=== PATIENT | female | born 1930 | race Caucasian/White ===

== ENCOUNTER 2016-12-28 10:57 | Emergency (ER) | payer MEDICARE, BC ==
[2016-12-28] MEDS ORDERED: IPRATROPIUM/ALBUTEROL 0.5-2.5 MG/3 ML AMPUL NEB ONE (11:06)
--- NOTE | 2016-12-28 12:09 | ER Document Report ---
ED General - General Chief Complaint: Skin Problem Stated Complaint: POSSIBLE RASH Time Seen by Provider: 12/28/16 11:06 Notes: Patient is an 86-year-old female, past medical history A. fib, CHF, prior CVAs, COPD, bed bound, presents with 3 months of a rash on her lower abdomen, legs and back. According to the son, she has had this rash for the past 3 months and was started on antifungal by her primary care physician. The rash is still spreading. He is also concerned that the patient has pneumonia and urinary tract infection. TRAVEL OUTSIDE OF THE [place] 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 RESPIRATORY: -cough, -SOB, +wheezing GASTROINTESTINAL: -abdominal pain, -nausea, -vomiting, -diarrhea GENITOURINARY: +malodorous urine, -dysuria, -hematuria MUSCULOSKELETAL: -back pain, -neck pain SKIN: +rash HEMATOLOGIC: -easy bruising or bleeding. LYMPHATIC: -swollen, enlarged glands. NEUROLOGICAL: -altered mental status or loss of consciousness, -headache, - neurologic symptoms PSYCHIATRIC: -anxiety, -depression. ALL OTHER SYSTEMS REVIEWED AND NEGATIVE. Physical Exam - Vital signs Vitals: Temp Pulse Resp BP Pulse Ox 98.0 F 60 20 150/58 H 100 12/28/16 11:02 12/28/16 11:02 12/28/16 11:02 12/28/16 11:02 12/28/16 11:02 - Notes Notes: PHYSICAL EXAMINATION: GENERAL: Well-appearing, well-nourished and in no acute distress. HEAD: Atraumatic, normocephalic. EYES: Pupils equal round and reactive to light, extraocular movements intact, sclera anicteric, conjunctiva are normal. ENT: nares patent, oropharynx clear without exudates. Moist mucous membranes. NECK: Normal range of motion, supple without lymphadenopathy LUNGS: No respiratory distress. Wheezing present. HEART: Regular rate and rhythm without murmurs ABDOMEN: Soft, nontender, normoactive bowel sounds. No guarding, no rebound. No masses appreciated. EXTREMITIES: Normal range of motion, no pitting or edema. No cyanosis. NEUROLOGICAL: Cranial nerves grossly intact. Normal speech, normal gait. Normal sensory and motor exams. PSYCH: Normal mood, normal affect. SKIN: Erythematous macular rash over lower abdomen, inner legs and back Course - Re-evaluation Re-evalutation: Patient appears well. She has evidence of a UTI. Looking through old urine cultures, will provide a dose of Zosyn and send her home with Macrobid and Keflex. This may also help with her rash in case there is a cellulitis component to it. Instructed her to follow-up with her primary care physician for further evaluation and treatment. Given strict return precautions and they understand. - Vital Signs Vital signs: Temp Pulse Resp BP Pulse Ox 98.0 F 60 20 150/58 H 100 12/28/16 11:02 12/28/16 11:02 12/28/16 11:02 12/28/16 11:02 12/28/16 11:02 - Laboratory Laboratory results interpreted by me: 12/28/16 12:55 Urine Blood SMALL H Ur Leukocyte Esterase LARGE H Discharge - Discharge Clinical Impression: Dermatitis UTI (urinary tract infection) Qualifiers: Urinary tract infection type: acute cystitis Hematuria presence: without hematuria Qualified Code(s): N30.00 - Acute cystitis without hematuria Condition: Stable Disposition: HOME, SELF-CARE Additional Instructions: URINARY TRACT INFECTION: Your evaluation indicates that you have a urinary tract infection. This is due to germs growing in the bladder. This is a common problem. This infection usually responds quickly to antibiotics. Your antibiotic should be taken exactly as prescribed. Drink plenty of fluids -- three to four quarts a day. Occasionally, a bladder anesthetic will be prescribed to help stop the feeling of urgency until the antibiotic has a chance to clear the infection. This may cause your urine to be dark orange. Certain urine infections require a culture. If the doctor obtained a culture, the results will be back in two days. You should call to see if a change in treatment is needed. A repeat urinalysis after you finish treatment is often recommended. The physician will let you know if further testing is required. Call the doctor if you develop fever, chills, flank pain, inability to urinate, or blood in the urine. ANTIBIOTIC THERAPY: You have been given an antibiotic prescription. It's important that you take all the medication, unless instructed otherwise by your physician. Failure to complete the entire course can result in relapse of your condition. Common side effects of antibiotics include nausea, intestinal cramping, or diarrhea. Women may develop vaginal yeast infections, and babies can get yeast (thrush) in the mouth following the use of antibiotics. Contact your physician if you develop significant side effects from this medication. Allergy to this antibiotic can result in hives, wheezing, faintness, or itching. If symptoms of allergy occur, stop the medication and call the doctor. NITROFURANTOIN (MACRODANTIN, MACROBID): You have received a prescription for nitrofurantoin (Macrodantin). This antibiotic is used for urinary tract infections. Women who are or nursing should notify the physician before taking this medicine. If you have ever had a problem caused by this medication in the past, be sure the physician is aware of it. Common side effects of this medicine include nausea, vomiting, or decreased appetite. Notify your physician if these side effects become severe. Immediately stop this medicine and call the physician if you develop cough , shortness of breath, chest pain, weakness, jaundice (yellow color of the skin and whites of the eyes), or a skin rash. CEPHALEXIN: The antibiotic you've been prescribed is a member of the cephalosporin class. This type of antibiotic covers a wide variety of infections, including those of the skin, lungs, and urinary tract. It's useful for staph infections. This antibiotic is slightly similar to the penicillin family. In rare cases , a person who is allergic to penicillin will also be allergic to this medication. If you have had a severe allergic reaction to penicillin, and have not taken this antibiotic since that time, notify your doctor. Antibiotics which cover many germs ("broad spectrum" antibiotics) are more likely to cause diarrhea or "yeast" infections. Women prone to vaginal yeast problems may suffer an attack after taking this antibiotic. In infants, oral thrush (white spots "stuck" on the cheek) or yeast diaper rash may result. See your doctor if these problems occur. Call at once if you develop itching, hives , shortness of breath, or lightheadedness. FOLLOW-UP CARE: If you have been referred to a physician for follow-up care, call the physician s office for an appointment as you were instructed or within the next two days. If you experience worsening or a significant change in your symptoms, notify the physician immediately or return to the Emergency Department at any time for re-evaluation. [facility] Dr. Ra Schreiber [address] [place] [address] Prescriptions: Cephalexin Monohydrate [Keflex 500 mg Capsule] 500 mg PO TID #21 capsule Nitrofurantoin/Nitrofuran Mac [Macrobid 100 mg Capsule] 1 tab PO BID #10 capsule
[2016-12-28] MEDS ORDERED: PREDNISONE 20 MG TABLET PO ONE (12:36)
--- NOTE | 2016-12-28 13:07 | RADIOLOGY REPORT (SQ) ---
EXAM DESCRIPTION: CHEST SINGLE VIEW COMPLETED DATE/TIME: 12/28/2016 12:17 pm REASON FOR STUDY: SOB COMPARISON: March 2016 EXAM PARAMETERS: NUMBER OF VIEWS: One view. TECHNIQUE: Single frontal radiographic view of the chest acquired. RADIATION DOSE: NA LIMITATIONS: Patient has made a shallow inspiration. FINDINGS: LUNGS AND PLEURA: No opacities, masses or pneumothorax. No pleural effusion. Linear densi ty is identified in right lower lung field which could represent subsegmental atelectasis or scarring . MEDIASTINUM AND HILAR STRUCTURES: There is some prominence of the right hilum unchanged from the prev ious study. HEART AND VASCULAR STRUCTURES: Heart normal in size. Normal vasculature. BONES: No acute findings. HARDWARE: None in the chest. OTHER: No other significant finding. IMPRESSION: NO ACUTE RADIOGRAPHIC FINDING IN THE CHEST. TECHNICAL DOCUMENTATION: JOB ID: [id number]
[2016-12-28 13:46] LABS: AMORPHOUS SEDIMENT,URINE TRACE /HPF; APPEARANCE,URINE CLOUDY; BILIRUBIN,URINE NEGATIVE (NEGATIVE); GLUCOSE, URINE NEGATIVE (NEGATIVE); KETONES,URINE NEGATIVE (NEGATIVE); LEUKOCYTE ESTERASE,URINE LARGE (NEGATIVE); NITRITE,URINE NEGATIVE (NEGATIVE); PROTEIN,URINE NEGATIVE (NEGATIVE); URINE SPECIFIC GRAVITY 1.006; UROBILINOGEN,URINE NEGATIVE mg/dL (<2.0)
[2016-12-28] MEDS ORDERED: PIPERACILLIN/TAZOBACTAM 3.375 GM VIAL IV ONE (13:51)
[2016-12-28 17:51] VITALS: BP 140/91
== END 2016-12-28 17:51 | disposition home or self-care (01) ==
LOC: ER 10:57
DX: L30.9 Dermatitis, unspecified (principal); N30.00 Acute cystitis without hematuria; I48.91 Unspecified atrial fibrillation; I50.9 Heart failure, unspecified; I11.0 Hypertensive heart disease with heart failure; I12.0 Hypertensive chronic kidney disease with stage 5 chronic kidney disease or end stage renal disease; N18.6 End stage renal disease; J44.9 Chronic obstructive pulmonary disease, unspecified; E03.9 Hypothyroidism, unspecified; Z86.73 Personal history of transient ischemic attack (TIA), and cerebral infarction without residual deficits; Z74.01 Bed confinement status; Z96.653 Presence of artificial knee joint, bilateral
CPT/HCPCS: 94640; 99284; 51701; 96365; 87086; 87088; 81001; 87186; 71010; A9270 ×2; J2543; J7512; J7620

== ENCOUNTER 2017-10-04 08:19 | Inpatient (IN) | payer MEDICARE, BC ==
[2017-10-04] MEDS ORDERED: NORMAL SALINE 1000 ML 1,000 ML IV PRN (08:23)
[2017-10-04] MEDS ORDERED: CEFTRIAXONE 1 GM/D5W RTU 50 ML IV ONE (08:23)
[2017-10-04] MEDS ORDERED: CEFTRIAXONE INJ 1000 MG VIAL IV ONE (09:00)
[2017-10-04 09:12] LABS: HEMATOCRIT 34.6 % (36.0-47.0); HEMOGLOBIN 11.3 g/dL (12.0-15.5); MEAN CORPUSCULAR HEMOGLOBIN 34.4 pg (27.0-33.4); MEAN CORPUSCULAR HGB CONC 32.6 g/dL (32.0-36.0); MEAN CORPUSCULAR VOLUME 106 fl (80-97); PLATELET COUNT 345 10^3/uL (150-450); RED BLOOD COUNT 3.28 10^6/uL (3.72-5.28); RED CELL DISTRIBUTION WIDTH 16.7 % (11.5-14.0); WHITE BLOOD COUNT 16.7 10^3/uL (4.0-10.5)
[2017-10-04 09:19] LABS: PROTHROMBIN TIME 15.8 SEC (11.4-15.4)
[2017-10-04 09:21] LABS: VENOUS BLOOD BASE EXCESS -3.5 mmol/L; VENOUS BLOOD HCO3 26.2 mmol/L (20-32)
[2017-10-04 09:26] LABS: ALANINE AMINOTRANSFERASE 48 U/L (9-52); ALBUMIN 2.5 g/dL (3.5-5.0); ALKALINE PHOSPHATASE 206 U/L (38-126); ANION GAP 17 (5-19); ASPARTATE AMINO TRANSFERASE 41 U/L (14-36); BILIRUBIN,DIRECT 0.7 mg/dL (0.0-0.4); BILIRUBIN,TOTAL 0.8 mg/dL (0.2-1.3); BLOOD UREA NITROGEN 76 mg/dL (7-20); CALCIUM 8.4 mg/dL (8.4-10.2); CARBON DIOXIDE 25 mmol/L (22-30); CHLORIDE 103 mmol/L (98-107); GLUCOSE 137 mg/dL (75-110); SODIUM 144.5 mmol/L (137-145); TOTAL PROTEIN 4.9 g/dL (6.3-8.2)
[2017-10-04 09:28] LABS: VENOUS BLOOD PCO2 72.8 mmHg (35-63); VENOUS BLOOD PH 7.17 (7.30-7.42)
[2017-10-04] MEDS ORDERED: NORMAL SALINE 1000 ML 1,000 ML IV ONE (09:32)
[2017-10-04] MEDS ORDERED: AMPICILLIN SOD/SULBACTAM 3 GM VIAL IV ONE (09:34)
[2017-10-04 09:36] LABS: ABSOLUTE LYMPHOCYTES# (MANUAL) 0.7 10^3/uL (0.5-4.7); BAND NEUTROPHILS % (MANUAL) 20 % (3-5); BASOPHILS % (MANUAL) 0 % (0-2); EOSINOPHILS % (MANUAL) 0 % (0-6); LYMPHOCYTES % (MANUAL) 4 % (13-45); MONOCYTES % (MANUAL) 6 % (3-13); SEGMENTED NEUTROPHILS % (MAN) 70 % (42-78); TOTAL CELLS COUNTED 100
[2017-10-04 09:38] LABS: ANISOCYTOSIS 1+; PLATELET COMMENT ADEQUATE; TOXIC GRANULATION 2+; TOXIC VACUOLATION PRESENT
[2017-10-04 09:39] LABS: POLYCHROMASIA SLIGHT
--- NOTE | 2017-10-04 09:40 | ER Document Report ---
ED General - General Stated Complaint: RESPIRATORY DISTRESS Time Seen by Provider: 10/04/17 08:22 Mode of Arrival: Medic Information source: Relative, Emergency Med Personnel Cannot obtain history due to: Intubated Notes: 87 yr old female chf copd presents by ems emergency traffice for resp failure. pt noted ot be fine yesterday per son, aspirated on fluids. pt found minimally responsive in significant resp distress. pt is a dnr but family requested intubation, pt intubated in the field by ems TRAVEL OUTSIDE OF THE [place] IN LAST 30 DAYS: No - HPI Onset: Just prior to arrival Onset/Duration: Sudden Quality of pain: No pain Severity: Severe Pain Level: Denies Associated symptoms: Productive cough, Fever, Shortness of breath Exacerbated by: Denies Relieved by: Denies Similar symptoms previously: Yes Recently seen / treated by doctor: Yes - Related Data Allergies/Adverse Reactions: No Known Allergies Allergy (Verified 09/06/15 19:57) Past Medical History - Social History Smoking Status: Former Smoker Cigarette use (# per day): No Chew tobacco use (# tins/day): No Smoking Education Provided: No Family History: Reviewed & Not Pertinent, Other - CHF - Past Medical History Cardiac Medical History: Reports: Hx Atrial Fibrillation, Hx Congestive Heart Failure, Hx Hypercholesterolemia, Hx Hypertension Pulmonary Medical History: Reports: Hx COPD Endocrine Medical History: Reports: Hx Hypothyroidism Renal/ Medical History: Reports: Hx End Stage Renal Disease - stage 5 Psychiatric Medical History: Reports: Hx Depression Past Surgical History: Reports: Hx Orthopedic Surgery - bilateral knee replacement - Immunizations Hx Pneumococcal Vaccination: 06/26/12 Review of Systems - Review of Systems Notes: REVIEW OF SYSTEMS: Per EMS CONSTITUTIONAL : fever. EENT: Denies eye, ear, throat, or mouth pain or symptoms. Denies nasal or sinus congestion or discharge. Denies throat, tongue, or mouth swelling or difficulty swallowing. CARDIOVASCULAR: Denies chest pain. Denies palpitations or racing or irregular heart beat. Denies ankle edema. RESPIRATORY: aspiration last night , resp distress GASTROINTESTINAL: Denies abdominal pain or distention. Denies nausea, vomiting , or diarrhea. Denies blood in vomitus, stools, or per rectum. Denies black, tarry stools. Denies constipation. GENITOURINARY: Denies difficulty urinating, painful urination, burning, frequency, blood in urine, or discharge. FEMALE GENITOURINARY: Denies vaginal bleeding, heavy or abnormal periods, irregular periods. Denies vaginal discharge or odor. MUSCULOSKELETAL: Denies back or neck pain or stiffness. Denies joint pain or swelling. SKIN: Denies rash, lesions or sores. HEMATOLOGIC : Denies easy bruising or bleeding. LYMPHATIC: Denies swollen, enlarged glands. NEUROLOGICAL: Denies confusion or altered mental status. Denies passing out or loss of consciousness. Denies dizziness or lightheadedness. Denies headache. Denies weakness or paralysis or loss of use of either side. Denies problems with gait or speech. Denies sensory loss, numbness, or tingling. Denies seizures. PSYCHIATRIC: Denies anxiety or stress. Denies depression, suicidal ideation, or homicidal ideation. ALL OTHER SYSTEMS REVIEWED AND NEGATIVE. PHYSICAL EXAMINATION: GENERAL: ill appearing, hypotensive, intubated HEAD: Atraumatic, normocephalic. EYES: Pupils equal round and reactive to light, extraocular movements intact, conjunctiva are normal. ENT: Nares patent, oropharynx clear without exudates. Moist mucous membranes. NECK: Normal range of motion, supple without lymphadenopathy LUNGS: intubated, coarse breath sounds HEART: weak pulses ABDOMEN: Soft, nontender, nondistended abdomen. No guarding, no rebound. No masses appreciated. Female : deferred Musculoskeletal: Normal range of motion, no pitting or edema. No cyanosis. NEUROLOGICAL: intubated gcs 3 SKIN: hot Dictation was performed using [employer] voice recognition software Course - Re-evaluation Re-evalutation: 10/04/17 09:40 Patient has obvious aspiration pneumonia causing respiratory failure, patient's tube was noted to be in place however there is issues with the circuitry and low lung volumes were initially noted, Dr. Edmondson assisted with ventilator settings, patient will be admitted to primary care physician Dr. Lebron, patient is treated as sepsis, after fluids were given patient's blood pressure did improve elevated lactic acid is noted Reevaluation has been performed on the patient. Patient vital signs are noted to be satting 99% intubated, heart rate 98 blood pressure 83/46 good cap refill respiratory rate 18 Cardiopulmonary exam noted lungs coarse Capillary refill is brisk Peripheral pulses are intact all throughout and bounding Skin Examination notes no tenting - Laboratory Result Diagrams: 10/04/17 08:58 10/04/17 08:58 Laboratory results interpreted by me: 10/04/17 10/04/17 10/04/17 08:58 08:58 08:58 WBC 16.7 H RBC 3.28 L Hgb 11.3 L Hct 34.6 L MCV 106 H MCH 34.4 H RDW 16.7 H PT 15.8 H VBG pH VBG pCO2 BUN 76 H Creatinine 2.26 H Est GFR ( Amer) 25 L Est GFR (Non-Af Amer) 20 L Glucose 137 H Lactic Acid Direct Bilirubin 0.7 H AST 41 H Alkaline Phosphatase 206 H Total Protein 4.9 L Albumin 2.5 L 10/04/17 10/04/17 08:58 09:06 WBC RBC Hgb Hct MCV MCH RDW PT VBG pH 7.17 L* VBG pCO2 72.8 H* BUN Creatinine Est GFR ( Amer) Est GFR (Non-Af Amer) Glucose Lactic Acid 2.6 H Direct Bilirubin AST Alkaline Phosphatase Total Protein Albumin - Diagnostic Test Radiology reviewed: Image reviewed - Pneumonia right lower lobe, Reports reviewed - EKG Interpretation by Me EKG shows normal: Sinus rhythm, [place], Intervals, QRS Complexes Rate: Tachycardia Critical Care Note - Critical Care Note Total time excluding time spent on procedures (mins): 68 Comments: 68 minutes of critical care time spent in direct contact evaluating and reevaluating the patient, treating symptoms, reviewing labs and studies and speaking with family and consultants excluding any procedures Discharge - Discharge Clinical Impression: Encephalopathy, Septic shock, Respiratory failure requiring intubation Aspiration pneumonia Qualifiers: Aspiration pneumonia type: unspecified Laterality: right Lung location: lower lobe of lung Qualified Code(s): J69.0 - Pneumonitis due to inhalation of food and vomit Condition: Critical Disposition: ADMITTED INPATIENT Admitting Provider: Fat[facility] Unit Admitted: ICU Referrals: KESHAWN LEBRON MD [Primary Care Provider] - Follow up as needed
[2017-10-04] MEDS ORDERED: LEVALBUTEROL HCL NEB 0.63 MG/3 ML AMPUL NEB PRN (09:43)
--- NOTE | 2017-10-04 09:46 | RADIOLOGY REPORT (SQ) ---
EXAM DESCRIPTION: CHEST SINGLE VIEW COMPLETED DATE/TIME: 10/04/2017 8:46 am REASON FOR STUDY: post intubation COMPARISON: AP chest 12/28/2016 for, 04/06/2016 CT chest 04/04/2016 CT EXAM PARAMETERS: NUMBER OF VIEWS: One view. TECHNIQUE: Single frontal radiographic view of the chest acquired. RADIATION DOSE: NA LIMITATIONS: Portable film, large patient FINDINGS: LUNGS AND PLEURA: Endotracheal tube tip 4 to 5 cm above the panda. Bibasilar airspace disease is present atelectasis versus pneumonia. No pleural effusions. No pneumo thorax. MEDIASTINUM AND HILAR STRUCTURES: No masses. Contour normal. HEART AND VASCULAR STRUCTURES: Stable cardiomegaly BONES: No acute findings. HARDWARE: Endotracheal tube tip midtrachea OTHER: No other significant finding. IMPRESSION: Endotracheal tube in good positioning. Bibasilar airspace disease atelectasis versus pneumonia TECHNICAL DOCUMENTATION: JOB ID: [id number] [employer]- All Rights Reserved Reading location - IP/workstation name: [email or web address]
[2017-10-04 10:15] LABS: APPEARANCE,URINE SLIGHTLY-CLOUDY; BILIRUBIN,URINE NEGATIVE (NEGATIVE); COLOR,URINE YELLOW; GLUCOSE, URINE NEGATIVE (NEGATIVE); KETONES,URINE NEGATIVE (NEGATIVE); LEUKOCYTE ESTERASE,URINE LARGE (NEGATIVE); NITRITE,URINE NEGATIVE (NEGATIVE); PROTEIN,URINE NEGATIVE (NEGATIVE); URINE SPECIFIC GRAVITY 1.012
[2017-10-04] MEDS ORDERED: NOREPINEPHRINE BITARTRATE INJ/PF 4 MG/4 ML SDV IV ONE (10:35)
[2017-10-04] MEDS ORDERED: DEXTROSE 40% GEL 15 GM TUBE PO PRN ×2 (11:28)
[2017-10-04] MEDS ORDERED: GLUCAGON,HUMAN RECOMB 1 MG INJ SUBCUT PRN (11:28)
[2017-10-04] MEDS ORDERED: DEXTROSE 50%-WATER 25 GM/50 ML DISP.SYRIN IV PRN ×2 (11:28)
[2017-10-04 11:35] LABS: ARTERIAL BLOOD BASE EXCESS -3.2 mmol/L; ARTERIAL BLOOD H2CO3 0.96 mmol/L (1.05-1.35); ARTERIAL BLOOD HCO3 20.4 mmol/L (20-26); ARTERIAL BLOOD O2 SATURATION 96.9 % (94-98); ARTERIAL BLOOD PCO2 31.8 mmHg (35-45); ARTERIAL BLOOD PH 7.43 (7.35-7.45); ARTERIAL BLOOD PO2 87.1 mmHg (80-100); ARTERIAL BLOOD TOTAL CO2 21.4 mmol/L (21-25)
[2017-10-04 11:37] LABS: ARTERIAL BLOOD FIO2 60%
[2017-10-04] MEDS ORDERED: ENOXAPARIN SODIUM INJ 30 MG/0.3 ML DISP.SYRIN SUBCUT ONE (13:00)
--- NOTE | 2017-10-04 13:01 | RADIOLOGY REPORT (SQ) ---
EXAM DESCRIPTION: CHEST SINGLE VIEW COMPLETED DATE/TIME: 10/04/2017 12:32 pm REASON FOR STUDY: post central line placement COMPARISON: CT chest 04/04/2016 Chest films 04/06/2016, 12/28/2016, 10/04/2017 EXAM PARAMETERS: NUMBER OF VIEWS: One view. TECHNIQUE: Single frontal radiographic view of the chest acquired. RADIATION DOSE: NA LIMITATIONS: None. FINDINGS: LUNGS AND PLEURA: Upper lobes are hyperlucent from obstructive disease. Minimal bibasilar consolidation likely atelectasis. Pneumonia could not entirely be excluded. No pneumothorax. Ques tion trace left pleural effusion. MEDIASTINUM AND HILAR STRUCTURES: No masses. Contour normal. HEART AND VASCULAR STRUCTURES: Moderate stable cardiomegaly BONES: Osteoporotic HARDWARE: Endotracheal tube tip 5 cm above the panda. Right jugular central line tip superior vena cava. Nasogastric tube tip and side port in the stomach. OTHER: No other significant finding. IMPRESSION: Tubes and lines in good positioning. No pneumothorax post right jugular central line placement. Line tip superior vena cava. Minimal bibasilar airspace disease likely atelectasis. Question trace left pleural effusion TECHNICAL DOCUMENTATION: JOB ID: [id number] [employer]- All Rights Reserved Reading location - IP/workstation name: [email or web address]
[2017-10-04] MEDS: IPRATROPIUM/ALBUTEROL 0.5-2.5 MG/3 ML AMPUL NEB SCH ×2 (13:41→20:13)
--- NOTE | 2017-10-04 14:02 | EKG REPORT ---
SEVERITY:- ABNORMAL ECG - SINUS TACHYCARDIA INFERIOR INFARCT, AGE INDETERMINATE CONSIDER ANTERIOR INFARCT : Confirmed by: Reji Solorzano MD 04-Oct-2017 14:00:42
--- NOTE | 2017-10-04 14:10 | PDOC H&P ---
History of Present Illness Admission Date/PCP: 10/04/17 09:52 KESHAWN LEBRON MD Patient complains of: field intubation History of Present Illness: JV PUGH is a 87 year old female bedbound on home health last seen in january. She choked while eating last night and seemed to recover. Son found her in respiratory distress this am and had her intubated in spite of DNR. Past Medical History Cardiac Medical History: Reports: Atrial Fibrillation, Congestive Heart Failure - diastolic since 2007, Hyperlipidema, Hypertension Pulmonary Medical History: Reports: Chronic Obstructive Pulmonary Disease (COPD) , Pneumonia - 2010 aspiration EENT Medical History: Reports: None Neurological Medical History: Reports: Ischemic CVA Endocrine Medical History: Reports: Hypothyroidism Renal/ Medical History: Reports: Chronic Kidney Disease, Other - neurogenic bladder Malignancy Medical History: Reports: None GI Medical History: Reports: None Musculoskeltal Medical History: Reports: Arthritis, Gout Psychiatric Medical History: Reports: Depression Traumatic Medical History: Reports: None Hematology: Reports: Anemia Infectious Medical History: Reports: None Past Surgical History Past Surgical History: Reports: Orthopedic Surgery - bilateral knee replacement Social History Information Source: Dr. Juan Lives with: Family Smoking Status: Former Smoker Number of Years Smokin Last Time Smoked: 2007 Frequency of Alcohol Use: None Hx Recreational Drug Use: No Hx Prescription Drug Abuse: No - Advance Directive Resuscitation Status: Do Not Resuscitate Family History Family History: Reviewed & Not Pertinent, Other - CHF Parental Family History Reviewed: Yes Children Family History Reviewed: Yes Sibling(s) Family History Reviewed.: Yes Medication/Allergy Home Medications: Allopurinol [Zyloprim] 300 mg PO DAILY 10/04/17 Aspirin [Aspirin 81 mg Chewable Tablet] 81 mg PO DAILY 10/04/17 Budesonide/Formoterol Fumarate [Symbicort Hfa 160-4.5 Mcg Inhaler 6 gm] 2 puff IH Q12 10/04/17 Bumetanide [Bumex 1 mg Tablet] 3 mg PO BID 10/04/17 Buspirone HCl [Buspar 15 mg Tablet] 7.5 mg PO TID 10/04/17 Gabapentin [Neurontin 400 mg Capsule] 400 mg PO Q8 10/04/17 Levothyroxine Sodium [Synthroid] 88 mcg PO Q6AM 10/04/17 Montelukast Sodium [Singulair 10 mg Tablet] 10 mg PO DAILY 10/04/17 Multivitamin [Tab-A-Lucretia] 1 each PO DAILY 10/04/17 Omeprazole 40 mg PO DAILY 10/04/17 Sennosides [Senna] 17.2 mg PO DAILY 10/04/17 Spironolactone [Aldactone] 50 mg PO DAILY 10/04/17 Tiotropium [place] [Spiriva Handihaler 18 mcg/dose (30 Dose)] 1 cap IH DAILY 05/13 Allergies/Adverse Reactions: No Known Allergies Allergy (Verified 09/06/15 19:57) Review of Systems ROS unobtainable: Due to endotracheal tube Physical Exam Vital Signs: Temp Pulse Resp BP Pulse Ox 97.9 F 84 16 140/96 H 100 10/04/17 13:19 10/04/17 13:35 10/04/17 13:19 10/04/17 13:19 10/04/17 13:19 Intake & Output 10/03/17 10/04/17 10/05/17 07:59 07:59 07:59 Output Total 360 Balance -360 Weight 190 lb 14.725 oz Eye exam: PRESENT: EOMI, PERRLA. ABSENT: conjunctival injection, nystagmus, periorbital swelling, scleral icterus Neck exam: ABSENT: lymphadenopathy, tenderness, thyromegaly, tracheal deviation Respiratory exam: PRESENT: rales Cardiovascular exam: ABSENT: diastolic murmur, irregular rhythm, systolic murmur GI/Abdominal exam: ABSENT: mass, organolmegaly Extremities exam: ABSENT: pedal edema Neurological exam: PRESENT: other - opens eyes to pain Skin exam: PRESENT: skin tears - L 4 finger lac. ABSENT: normal color - hyperpigmentation legs as in necrobiosis Results Laboratory Results: Abnormal - 24 hr 10/04/17 10/04/17 10/04/17 08:41 08:58 08:58 WBC 16.7 H RBC 3.28 L Hgb 11.3 L Hct 34.6 L MCV 106 H MCH 34.4 H RDW 16.7 H Band Neutrophils % 20 H Lymphocytes % (Manual) 4 L Abs Neuts (Manual) 15.0 H PT 15.8 H Carbonic Acid ABG pCO2 VBG pH VBG pCO2 BUN Creatinine Est GFR ( Amer) Est GFR (Non-Af Amer) Glucose POC Glucose Lactic Acid Direct Bilirubin AST Alkaline Phosphatase Total Protein Albumin Urine Urobilinogen 2.0 H Ur Leukocyte Esterase LARGE H 10/04/17 10/04/17 10/04/17 08:58 08:58 09:06 WBC RBC Hgb Hct MCV MCH RDW Band Neutrophils % Lymphocytes % (Manual) Abs Neuts (Manual) PT Carbonic Acid ABG pCO2 VBG pH 7.17 L* VBG pCO2 72.8 H* BUN 76 H Creatinine 2.26 H Est GFR ( Amer) 25 L Est GFR (Non-Af Amer) 20 L Glucose 137 H POC Glucose Lactic Acid 2.6 H Direct Bilirubin 0.7 H AST 41 H Alkaline Phosphatase 206 H Total Protein 4.9 L Albumin 2.5 L Urine Urobilinogen Ur Leukocyte Esterase 10/04/17 10/04/17 10/04/17 09:07 11:10 13:24 WBC RBC Hgb Hct MCV MCH RDW Band Neutrophils % Lymphocytes % (Manual) Abs Neuts (Manual) PT Carbonic Acid 0.96 L ABG pCO2 31.8 L VBG pH VBG pCO2 BUN Creatinine Est GFR ( Amer) Est GFR (Non-Af Amer) Glucose POC Glucose 154 H Lactic Acid 3.8 H Direct Bilirubin AST Alkaline Phosphatase Total Protein Albumin Urine Urobilinogen Ur Leukocyte Esterase Impressions: Chest X-Ray 10/04/17 11:12 IMPRESSION: Tubes and lines in good positioning. No pneumothorax post right jugular central line placement. Line tip superior vena cava. Minimal bibasilar airspace disease likely atelectasis. Question trace left pleural effusion Assessment & Plan - Diagnosis (1) Sepsis associated hypotension Is this a current diagnosis for this admission?: Yes Plan: on levophed (2) Aspiration pneumonia Qualifiers: Aspiration pneumonia type: due to regurgitated food Laterality: bilateral Lung location: lower lobe of lung Qualified Code(s): J69.0 - Pneumonitis due to inhalation of food and vomit Is this a current diagnosis for this admission?: Yes Plan: unasyn (3) Chronic diastolic heart failure Is this a current diagnosis for this admission?: Yes (4) Atonic neurogenic bladder Is this a current diagnosis for this admission?: Yes (5) Chronic atrial fibrillation Is this a current diagnosis for this admission?: Yes (6) Panlobular emphysema Is this a current diagnosis for this admission?: Yes (7) Cerebral infarction due to thrombosis of left middle cerebral artery Is this a current diagnosis for this admission?: Yes (8) Atrophy of thyroid Is this a current diagnosis for this admission?: Yes - Inpatient Certification Based on my medical assessment, after consideration of the patient's comorbidities, presenting symptoms, or acuity I expect that the services needed warrant INPATIENT care.: Yes I certify that my determination is in accordance with my understanding of Medicare's requirements for reasonable and necessary INPATIENT services [42 CFR 412.3e].: Yes Medical Necessity: Failure to Improve With Outpatient Therapy, Significant Comorbidiites Make Outpatient Treatment Too Risky, Need Close Monitoring Due to Risk of Patient Decompensation, Need For IV Fluids, Need For Continuous Telemetry Monitoring, Need for Nebulizer Therapy and Monitoring of Response, Need for Neurological Checks, Need for IV Antibiotics, Need for Surgery, Risk of Complication if Not Cared For in Hospital, Risk of Diagnosis Which Will Require Inpatient Eval/Care/Monitoring
[2017-10-04] MEDS: AMPICILLIN SODIUM/SULBACTAM NA 3 GM in NORMAL SALINE 100 ML IV SCH ×2 (15:23→20:42)
--- NOTE | 2017-10-04 15:48 | PDOC CONSULTATION ---
Consultation Consult Date: 10/04/17 Consult reason:: resp failure History of Present Illness Admission Date/PCP: 10/04/17 09:52 KESHAWN LEBRON MD History of Present Illness: JV PUGH is a 87 year old female Past Medical History Cardiac Medical History: Reports: Atrial Fibrillation, Congestive Heart Failure , Hyperlipidema, Hypertension Pulmonary Medical History: Reports: Chronic Obstructive Pulmonary Disease (COPD) Endocrine Medical History: Reports: Hypothyroidism Renal/ Medical History: Reports: End Stage Renal Disease - stage 5 Psychiatric Medical History: Reports: Depression Past Surgical History Past Surgical History: Reports: Orthopedic Surgery - bilateral knee replacement Social History Smoking Status: Former Smoker Frequency of Alcohol Use: None Hx Recreational Drug Use: No Hx Prescription Drug Abuse: No - Advance Directive Resuscitation Status: Do Not Resuscitate Family History Family History: Reviewed & Not Pertinent, Other - CHF Medication/Allergy Home Medications: Allopurinol [Zyloprim] 300 mg PO DAILY 10/04/17 Aspirin [Aspirin 81 mg Chewable Tablet] 81 mg PO DAILY 10/04/17 Budesonide/Formoterol Fumarate [Symbicort Hfa 160-4.5 Mcg Inhaler 6 gm] 2 puff IH Q12 10/04/17 Bumetanide [Bumex 1 mg Tablet] 3 mg PO BID 10/04/17 Buspirone HCl [Buspar 15 mg Tablet] 7.5 mg PO TID 10/04/17 Gabapentin [Neurontin 400 mg Capsule] 400 mg PO Q8 10/04/17 Levothyroxine Sodium [Synthroid] 88 mcg PO Q6AM 10/04/17 Montelukast Sodium [Singulair 10 mg Tablet] 10 mg PO DAILY 10/04/17 Multivitamin [Tab-A-Lucretia] 1 each PO DAILY 10/04/17 Omeprazole 40 mg PO DAILY 10/04/17 Sennosides [Senna] 17.2 mg PO DAILY 10/04/17 Spironolactone [Aldactone] 50 mg PO DAILY 10/04/17 Tiotropium [place] [Spiriva Handihaler 18 mcg/dose (30 Dose)] 1 cap IH DAILY 05/13 Allergies/Adverse Reactions: No Known Allergies Allergy (Verified 09/06/15 19:57) Physical Exam Vital Signs: Temp Pulse Resp BP Pulse Ox 101.3 F H 22 H 109/64 96 10/04/17 08:30 10/04/17 11:56 10/04/17 11:56 10/04/17 11:56 General appearance: PRESENT: no acute distress, disheveled. ABSENT: cooperative Head exam: PRESENT: atraumatic, normocephalic Eye exam: PRESENT: conjunctiva pale. ABSENT: EOMI, nystagmus, periorbital swelling, scleral icterus Mouth exam: PRESENT: dry mucosa, neck supple, tongue midline, other - ET tube Neck exam: ABSENT: carotid bruit, JVD, lymphadenopathy, thyromegaly, tracheal deviation, tracheostomy Respiratory exam: PRESENT: decreased breath sounds, prolonged expiratory phas, rales, rhonchi, symmetrical, unlabored, wheezes. ABSENT: retraction, stridor, tachypnea Cardiovascular exam: PRESENT: RRR, +S1, +S2 Pulses: PRESENT: normal radial pulses GI/Abdominal exam: PRESENT: diminished bowel sounds, distended, soft Extremities exam: ABSENT: clubbing, joint swelling Musculoskeletal exam: ABSENT: ambulatory, deformity, dislocation Neurological exam: ABSENT: awake, oriented to person Skin exam: PRESENT: dry, warm Results Laboratory Results: 10/04/17 11:10 Carbonic Acid 0.96 L HCO3/H2CO3 Ratio 21:1 ABG pH 7.43 ABG pCO2 31.8 L ABG pO2 87.1 ABG HCO3 20.4 ABG O2 Saturation 96.9 ABG Base Excess -3.2 FiO2 60% Impressions: Chest X-Ray 10/04/17 11:12 IMPRESSION: Tubes and lines in good positioning. No pneumothorax post right jugular central line placement. Line tip superior vena cava. Minimal bibasilar airspace disease likely atelectasis. Question trace left pleural effusion Assessment & Plan - Diagnosis (1) Aspiration pneumonia Qualifiers: Aspiration pneumonia type: due to regurgitated food Laterality: bilateral Lung location: lower lobe of lung Qualified Code(s): J69.0 - Pneumonitis due to inhalation of food and vomit Is this a current diagnosis for this admission?: Yes Plan: witnessed ET aspirate c/w aspiration (2) Chronic atrial fibrillation Is this a current diagnosis for this admission?: Yes Plan: stable (3) Panlobular emphysema Is this a current diagnosis for this admission?: Yes Plan: Generic Name Dose Route Start Last Admin Trade Name Freq PRN Reason Stop Dose Admin Levalbuterol HCl 0.63 mg 10/04/17 09:43 Xopenex Neb 0.63 Mg/3 Ml Ampul NEB 11/03/17 09:42 [id number] PRN FOR WHEEZING Albuterol/Ipratropium 3 ml 10/04/17 14:00 10/04/17 13:41 Duoneb 3 Ml Ampul NEB 11/03/17 13:59 3 ml RTQ6 PACO (4) Respiratory failure requiring intubation Is this a current diagnosis for this admission?: Yes Plan: Hypoxemic hypercapnic respiratory failure due to aspiration pneumonitis supplement with mechanical ventilation to maintain oxygenation SaO2 greater than 90% and ventilation adequate to maintain pH (5) Sepsis associated hypotension Is this a current diagnosis for this admission?: Yes Plan: Vasopressor agent - Time Total Critical Time (Minutes): 65
[2017-10-04] MEDS ORDERED: LIDOCAINE 1% INJ-PF (10 MG/ML) 30 ML SDV ONE (17:59)
--- NOTE | 2017-10-04 19:24 | OPERATIVE REPORT E ---
Operative Report NAME: JV PUGH : 1930 AGE: 87Y DATE OF SURGERY: 10/04/2017 ROOM: 606 PREOPERATIVE DIAGNOSIS: LACERATION OF THE LEFT RING FINGER ON THE DORSAL SIDE. POSTOPERATIVE DIAGNOSIS: LACERATION OF THE LEFT RING FINGER ON THE DORSAL SIDE, WITH A LACERATION ABOUT 2.5 CM LONG ON THE MEDIAL SIDE OF THE PROXIMAL PHALANGEAL AREA. OPERATION: Suture of laceration of left ring finger. SURGEON: KAREN AC M.D. ANESTHESIA: Local. INDICATION: This is an 87-year-old female who apparently injured her left ring finger in the hospital. This happened this morning. PROCEDURE: The patient, while in bed, intubated, with a left fourth finger prep at the area of the web space between the fifth and third fingers. This was then anesthetized using 1% Xylocaine, using about 4 mL. This numbed the nerves. Following this, the wound itself was then prepped and draped in the usual sterile fashion. The laceration was then repaired with [id number] suture using 3-0 Prolene. About 3 stitches of 3-0 Prolene were used. It approximated the wound nicely. Patient did have a wedding ring that cannot be pulled out easily, and it was right before the laceration. The anesthesia was placed just above the ring, close to the metacarpophalangeal joint area. Following this, there was adequate hemostasis noted. This was then wrapped with a layer of Xeroform gauze and 4 x 4, and pressure applied for about 5 minutes after the procedure, for better hemostasis. Patient tolerated procedure well. DICTATING PHYSICIAN: KAREN AC M.D. [id number] PHY#: [id number] ID: [id number] JOB#: [id number] ACCT: [id number] cc:KAREN AC M.D. >
[2017-10-04] MEDS: PROPOFOL 100 ML IV PRN (19:53)
[2017-10-04] MEDS: FAMOTIDINE INJ/PF 20 MG/2 ML SDV IV SCH (21:54)
[2017-10-05] MEDS: IPRATROPIUM/ALBUTEROL 0.5-2.5 MG/3 ML AMPUL NEB SCH ×4 (02:25→20:00)
[2017-10-05] MEDS: AMPICILLIN SODIUM/SULBACTAM NA 3 GM in NORMAL SALINE 100 ML IV SCH ×4 (02:59→20:25)
[2017-10-05] MEDS: PROPOFOL 100 ML IV PRN ×4 (02:59→21:25)
[2017-10-05 06:22] LABS: HEMATOCRIT 30.1 % (36.0-47.0); HEMOGLOBIN 9.7 g/dL (12.0-15.5); MEAN CORPUSCULAR HEMOGLOBIN 33.9 pg (27.0-33.4); MEAN CORPUSCULAR HGB CONC 32.4 g/dL (32.0-36.0); MEAN CORPUSCULAR VOLUME 105 fl (80-97); PLATELET COUNT 263 10^3/uL (150-450); RED BLOOD COUNT 2.87 10^6/uL (3.72-5.28); RED CELL DISTRIBUTION WIDTH 16.6 % (11.5-14.0); WHITE BLOOD COUNT 21.8 10^3/uL (4.0-10.5)
[2017-10-05 06:35] LABS: ALANINE AMINOTRANSFERASE 47 U/L (9-52); ALBUMIN 2.3 g/dL (3.5-5.0); ALKALINE PHOSPHATASE 172 U/L (38-126); ANION GAP 16 (5-19); ASPARTATE AMINO TRANSFERASE 43 U/L (14-36); BILIRUBIN,DIRECT 0.6 mg/dL (0.0-0.4); BILIRUBIN,TOTAL 0.6 mg/dL (0.2-1.3); BLOOD UREA NITROGEN 71 mg/dL (7-20); CALCIUM 8.3 mg/dL (8.4-10.2); CARBON DIOXIDE 23 mmol/L (22-30); CHLORIDE 108 mmol/L (98-107); GLUCOSE 121 mg/dL (75-110); PHOSPHORUS 3.5 mg/dL (2.5-4.5); SODIUM 146.5 mmol/L (137-145); TOTAL PROTEIN 4.5 g/dL (6.3-8.2)
--- NOTE | 2017-10-05 06:39 | PDOC PROGRESS REPORT ---
Subjective Progress Note for:: 10/05/17 Subjective:: sedated Reason For Visit: PNEUMONIA Physical Exam Vital Signs: Temp Pulse Resp BP Pulse Ox 95.0 F L 73 22 H 107/57 L 100 10/05/17 06:00 10/05/17 02:30 10/05/17 06:00 10/05/17 05:22 10/05/17 06:00 Intake & Output 10/03/17 10/04/17 10/05/17 07:59 07:59 07:59 Intake Total 826 Output Total 1098 Balance -272 Weight 186 lb 15.232 oz Respiratory exam: PRESENT: clear to auscultation tre Cardiovascular exam: ABSENT: diastolic murmur, irregular rhythm, systolic murmur GI/Abdominal exam: ABSENT: mass, organolmegaly, tenderness Extremities exam: ABSENT: pedal edema Results Laboratory Results: 10/04/17 10/04/17 11:10 13:24 Carbonic Acid 0.96 L HCO3/H2CO3 Ratio 21:1 ABG pH 7.43 ABG pCO2 31.8 L ABG pO2 87.1 ABG HCO3 20.4 ABG O2 Saturation 96.9 ABG Base Excess -3.2 FiO2 60% Lactic Acid 3.8 H Impressions: Chest X-Ray 10/04/17 11:12 IMPRESSION: Tubes and lines in good positioning. No pneumothorax post right jugular central line placement. Line tip superior vena cava. Minimal bibasilar airspace disease likely atelectasis. Question trace left pleural effusion Assessment & Plan - Diagnosis (1) Sepsis associated hypotension Is this a current diagnosis for this admission?: Yes Plan: pressures varies on propofol (2) Aspiration pneumonia Qualifiers: Aspiration pneumonia type: due to regurgitated food Laterality: bilateral Lung location: lower lobe of lung Qualified Code(s): J69.0 - Pneumonitis due to inhalation of food and vomit Is this a current diagnosis for this admission?: Yes Plan: cultures pending (3) Chronic diastolic heart failure Is this a current diagnosis for this admission?: Yes Plan: finished saline boluses. Try half normal at 125/h. (4) Atonic neurogenic bladder Is this a current diagnosis for this admission?: Yes (5) Chronic atrial fibrillation Is this a current diagnosis for this admission?: Yes (6) Panlobular emphysema Is this a current diagnosis for this admission?: Yes (7) Cerebral infarction due to thrombosis of left middle cerebral artery Is this a current diagnosis for this admission?: Yes (8) Atrophy of thyroid Is this a current diagnosis for this admission?: Yes (9) Anoxic brain damage Is this a current diagnosis for this admission?: Yes Plan: no speech when off sedation. Prognosis grim. - Inpatient Certification Medical Necessity: Failure to Improve With Outpatient Therapy, Significant Comorbidiites Make Outpatient Treatment Too Risky, Need Close Monitoring Due to Risk of Patient Decompensation, Need For IV Fluids, Need For Continuous Telemetry Monitoring, Need for Nebulizer Therapy and Monitoring of Response, Need for IV Antibiotics, Risk of Complication if Not Cared For in Hospital, Risk of Diagnosis Which Will Require Inpatient Eval/Care/Monitoring
[2017-10-05 06:45] LABS: ABSOLUTE LYMPHOCYTES# (MANUAL) 0.7 10^3/uL (0.5-4.7); ABSOLUTE MONOCYTES # (MANUAL) 0.2 10^3/uL (0.1-1.4); ABSOLUTE NEUTROPHILS# (MANUAL) 20.9 10^3/uL (1.7-8.2); BAND NEUTROPHILS % (MANUAL) 16 % (3-5); BASOPHILS % (MANUAL) 0 % (0-2); EOSINOPHILS % (MANUAL) 0 % (0-6); LYMPHOCYTES % (MANUAL) 3 % (13-45); MONOCYTES % (MANUAL) 1 % (3-13); SEGMENTED NEUTROPHILS % (MAN) 80 % (42-78); TOTAL CELLS COUNTED 100
[2017-10-05 06:48] LABS: ANISOCYTOSIS 1+; PLATELET COMMENT ADEQUATE; TARGET CELLS SLIGHT; TOXIC GRANULATION SLIGHT; TOXIC VACUOLATION PRESENT
[2017-10-05] MEDS: 1/2 NORMAL SALINE 1,000 ML IV PRN ×3 (06:54→21:19)
--- NOTE | 2017-10-05 07:07 | RADIOLOGY REPORT (SQ) ---
EXAM DESCRIPTION: CHEST SINGLE VIEW CLINICAL HISTORY: 87 years Female, pna/copd/resp failure COMPARISON: 10/04/17. NUMBER OF VIEWS/TECHNIQUE: 1/AP LIMITATIONS: None. FINDINGS: Moderate bibasilar opacity-effusion, mild mixed interstitial and airspace opacities, normal cardiac silhouette, atherosclerosis, surgical clips of the right upper hemithorax, adequate appearing endotracheal tube, right jugular central line tip at the SVC, atherosclerosis. No pneumothorax. No acute bone defect. IMPRESSION: No significant change.
[2017-10-05 08:29] LABS: ARTERIAL BLOOD BASE EXCESS -1.9 mmol/L; ARTERIAL BLOOD H2CO3 1.05 mmol/L (1.05-1.35); ARTERIAL BLOOD HCO3 22.1 mmol/L (20-26); ARTERIAL BLOOD O2 SATURATION 96.8 % (94-98); ARTERIAL BLOOD PH 7.42 (7.35-7.45); ARTERIAL BLOOD PO2 87.1 mmHg (80-100); ARTERIAL BLOOD TOTAL CO2 23.2 mmol/L (21-25)
[2017-10-05 08:37] LABS: ARTERIAL BLOOD FIO2 50%
[2017-10-05] MEDS: ENOXAPARIN SODIUM INJ 30 MG/0.3 ML DISP.SYRIN SUBCUT SCH (10:12)
[2017-10-05] MEDS: FAMOTIDINE INJ/PF 20 MG/2 ML SDV IV SCH ×2 (10:13→21:19)
--- NOTE | 2017-10-05 12:41 | PDOC PROGRESS REPORT ---
Subjective Progress Note for:: 10/05/17 Subjective:: Intubated and sedated Reason For Visit: PNEUMONIA Physical Exam Vital Signs: Temp Pulse Resp BP Pulse Ox 95.0 F L 73 22 H 107/57 L 100 10/05/17 06:00 10/05/17 02:30 10/05/17 06:00 10/05/17 05:22 10/05/17 06:00 Intake & Output 10/04/17 10/05/17 10/06/17 06:59 06:59 06:59 Intake Total 826 Output Total 1098 Balance -272 Weight 84.8 kg General appearance: PRESENT: no acute distress, disheveled, well-developed, well -nourished. ABSENT: cooperative Head exam: PRESENT: atraumatic, normocephalic Eye exam: PRESENT: conjunctiva pale. ABSENT: EOMI, nystagmus, periorbital swelling, scleral icterus Mouth exam: PRESENT: dry mucosa, neck supple, tongue midline, other - ET tube in place Neck exam: ABSENT: carotid bruit, JVD, lymphadenopathy, thyromegaly, tracheal deviation, tracheostomy Respiratory exam: PRESENT: decreased breath sounds, prolonged expiratory phas, rales, rhonchi, symmetrical, unlabored, wheezes. ABSENT: retraction, stridor, tachypnea Cardiovascular exam: PRESENT: RRR, +S1, +S2, tachycardia Pulses: PRESENT: normal radial pulses GI/Abdominal exam: PRESENT: diminished bowel sounds, soft Extremities exam: ABSENT: clubbing, full ROM, joint swelling Musculoskeletal exam: ABSENT: ambulatory, deformity, dislocation, full ROM Neurological exam: ABSENT: awake, oriented to person Skin exam: PRESENT: dry, warm Results Laboratory Results: 10/05/17 06:05 10/05/17 06:05 10/04/17 10/04/17 10/05/17 11:10 13:24 06:05 WBC 21.8 H RBC 2.87 L Hgb 9.7 L Hct 30.1 L MCV 105 H MCH 33.9 H MCHC 32.4 RDW 16.6 H Plt Count 263 Seg Neutrophils % Not Reportable Lymphocytes % Not Reportable Monocytes % Not Reportable Eosinophils % Not Reportable Basophils % Not Reportable Absolute Neutrophils Not Reportable Absolute Lymphocytes Not Reportable Absolute Monocytes Not Reportable Absolute Eosinophils Not Reportable Absolute Basophils Not Reportable Carbonic Acid 0.96 L HCO3/H2CO3 Ratio 21:1 ABG pH 7.43 ABG pCO2 31.8 L ABG pO2 87.1 ABG HCO3 20.4 ABG O2 Saturation 96.9 ABG Base Excess -3.2 FiO2 60% Sodium Potassium Chloride Carbon Dioxide Anion Gap BUN Creatinine Est GFR ( Amer) Est GFR (Non-Af Amer) Glucose Lactic Acid 3.8 H Calcium Phosphorus Magnesium Total Bilirubin AST ALT Alkaline Phosphatase Total Protein Albumin 10/05/17 06:05 WBC RBC Hgb Hct MCV MCH MCHC RDW Plt Count Seg Neutrophils % Lymphocytes % Monocytes % Eosinophils % Basophils % Absolute Neutrophils Absolute Lymphocytes Absolute Monocytes Absolute Eosinophils Absolute Basophils Carbonic Acid HCO3/H2CO3 Ratio ABG pH ABG pCO2 ABG pO2 ABG HCO3 ABG O2 Saturation ABG Base Excess FiO2 Sodium 146.5 H Potassium 3.0 L* D Chloride 108 H Carbon Dioxide 23 Anion Gap 16 BUN 71 H Creatinine 1.80 H Est GFR ( Amer) 32 L Est GFR (Non-Af Amer) 27 L Glucose 121 H Lactic Acid Calcium 8.3 L Phosphorus 3.5 Magnesium 2.3 Total Bilirubin 0.6 AST 43 H ALT 47 Alkaline Phosphatase 172 H Total Protein 4.5 L Albumin 2.3 L Impressions: Chest X-Ray 10/05/17 06:00 IMPRESSION: No significant change. Assessment & Plan - Diagnosis (1) Aspiration pneumonia Qualifiers: Aspiration pneumonia type: due to regurgitated food Laterality: bilateral Lung location: lower lobe of lung Qualified Code(s): J69.0 - Pneumonitis due to inhalation of food and vomit Is this a current diagnosis for this admission?: Yes Plan: Unchanged (2) Chronic atrial fibrillation Is this a current diagnosis for this admission?: Yes Plan: stable (3) Panlobular emphysema Is this a current diagnosis for this admission?: Yes Plan: Generic Name Dose Route Start Last Admin Trade Name Freq PRN Reason Stop Dose Admin Levalbuterol HCl 0.63 mg 10/04/17 09:43 Xopenex Neb 0.63 Mg/3 Ml Ampul NEB 11/03/17 09:42 [id number] PRN FOR WHEEZING Albuterol/Ipratropium 3 ml 10/04/17 14:00 10/04/17 13:41 Duoneb 3 Ml Ampul NEB 11/03/17 13:59 3 ml RTQ6 PACO (4) Respiratory failure requiring intubation Is this a current diagnosis for this admission?: Yes Plan: Improving FiO2 down to 50% (5) Sepsis associated hypotension Is this a current diagnosis for this admission?: Yes - Time Total Critical Time (Minutes): 50
[2017-10-05] MEDS: CEFTAZIDIME PENTAHYDRATE 1 GM in DEXTROSE 5%-WATER 50 ML IV SCH (13:56)
[2017-10-05] MEDS: POTASSIUM CHLORIDE 20 MEQ/15 ML UDCUP NG SCH ×2 (13:57→17:00)
[2017-10-05] MEDS: TOBRAMYCIN SULFATE NEB 40 MG/ML 30 ML NEB SCH (20:00)
[2017-10-06] MEDS: IPRATROPIUM/ALBUTEROL 0.5-2.5 MG/3 ML AMPUL NEB SCH ×4 (01:29→20:24)
[2017-10-06] MEDS: AMPICILLIN SODIUM/SULBACTAM NA 3 GM in NORMAL SALINE 100 ML IV SCH ×4 (02:13→21:23)
[2017-10-06] MEDS: PROPOFOL 100 ML IV PRN ×4 (02:14→21:06)
[2017-10-06 06:08] LABS: ARTERIAL BLOOD BASE EXCESS -3.4 mmol/L; ARTERIAL BLOOD H2CO3 0.97 mmol/L (1.05-1.35); ARTERIAL BLOOD HCO3 20.4 mmol/L (20-26); ARTERIAL BLOOD O2 SATURATION 97.5 % (94-98); ARTERIAL BLOOD PCO2 32.1 mmHg (35-45); ARTERIAL BLOOD PH 7.42 (7.35-7.45); ARTERIAL BLOOD PO2 95.6 mmHg (80-100); ARTERIAL BLOOD TOTAL CO2 21.4 mmol/L (21-25)
[2017-10-06 06:15] LABS: ARTERIAL BLOOD FIO2 50%
[2017-10-06 06:25] LABS: HEMATOCRIT 28.2 % (36.0-47.0); HEMOGLOBIN 9.1 g/dL (12.0-15.5); MEAN CORPUSCULAR HEMOGLOBIN 33.9 pg (27.0-33.4); MEAN CORPUSCULAR HGB CONC 32.4 g/dL (32.0-36.0); MEAN CORPUSCULAR VOLUME 105 fl (80-97); PLATELET COUNT 237 10^3/uL (150-450); RED CELL DISTRIBUTION WIDTH 16.6 % (11.5-14.0); WHITE BLOOD COUNT 24.2 10^3/uL (4.0-10.5)
[2017-10-06 06:27] LABS: ANION GAP 15 (5-19); BLOOD UREA NITROGEN 60 mg/dL (7-20); CALCIUM 8.3 mg/dL (8.4-10.2); CARBON DIOXIDE 21 mmol/L (22-30); CHLORIDE 109 mmol/L (98-107); GLUCOSE 102 mg/dL (75-110); POTASSIUM 3.4 mmol/L (3.6-5.0); SODIUM 145.3 mmol/L (137-145)
[2017-10-06 06:43] LABS: BASOPHILS % (MANUAL) 0 % (0-2)
[2017-10-06 06:45] LABS: ABSOLUTE LYMPHOCYTES# (MANUAL) 0.5 10^3/uL (0.5-4.7); ABSOLUTE MONOCYTES # (MANUAL) 1.7 10^3/uL (0.1-1.4); ABSOLUTE NEUTROPHILS# (MANUAL) 21.8 10^3/uL (1.7-8.2); BAND NEUTROPHILS % (MANUAL) 4 % (3-5); EOSINOPHILS % (MANUAL) 1 % (0-6); LYMPHOCYTES % (MANUAL) 2 % (13-45); MONOCYTES % (MANUAL) 7 % (3-13); SEGMENTED NEUTROPHILS % (MAN) 86 % (42-78); TOTAL CELLS COUNTED 100
[2017-10-06 06:53] LABS: ANISOCYTOSIS 1+; POIKILOCYTOSIS SLIGHT; TOXIC GRANULATION 1+
[2017-10-06 06:54] LABS: PLATELET COMMENT ADEQUATE; PLATELET GIANT PRESENT; PLATELET LARGE PRESENT; SCHISTOCYTES 1+; TEAR DROP CELLS SLIGHT
--- NOTE | 2017-10-06 06:55 | RADIOLOGY REPORT (SQ) ---
EXAM DESCRIPTION: CHEST SINGLE VIEW CLINICAL HISTORY: 87 years Female, pna/resp fail COMPARISON: 10/05/17. NUMBER OF VIEWS/TECHNIQUE: 1/AP LIMITATIONS: None. FINDINGS: Moderate bilateral lower hemithoracic opacity-effusion, moderate interstitial markings, normal cardiac silhouette, atherosclerosis, adequate appearing endotracheal tube, right jugular central line tip at cavoatrial junction. Likely adequate enteric tube obscured at its tip. No pneumothorax. No acute bone defect. IMPRESSION: No significant change.
--- NOTE | 2017-10-06 08:00 | PDOC PROGRESS REPORT ---
Subjective Progress Note for:: 10/06/17 Subjective:: sedated Reason For Visit: PNEUMONIA Physical Exam Vital Signs: Temp Pulse Resp BP Pulse Ox 97.6 F 63 22 H 105/53 L 98 10/06/17 05:44 10/06/17 01:30 10/06/17 06:00 10/06/17 05:23 10/06/17 06:00 Intake & Output 10/04/17 10/05/17 10/06/17 07:59 07:59 07:59 Intake Total 826 2984 Output Total 1098 880 Balance -272 2104 Weight 186 lb 15.232 oz 189 lb 6.033 oz Respiratory exam: PRESENT: clear to auscultation tre Cardiovascular exam: ABSENT: diastolic murmur, irregular rhythm, systolic murmur GI/Abdominal exam: ABSENT: mass, organolmegaly Extremities exam: ABSENT: pedal edema Results Laboratory Results: 10/06/17 05:45 10/06/17 05:45 10/05/17 10/06/17 10/06/17 08:00 05:45 05:45 WBC RBC Hgb Hct MCV MCH MCHC RDW Plt Count Seg Neutrophils % Lymphocytes % Monocytes % Eosinophils % Basophils % Absolute Neutrophils Absolute Lymphocytes Absolute Monocytes Absolute Eosinophils Absolute Basophils Carbonic Acid 1.05 0.97 L HCO3/H2CO3 Ratio 21:1 21:1 ABG pH 7.42 7.42 ABG pCO2 35.0 32.1 L ABG pO2 87.1 95.6 ABG HCO3 22.1 20.4 ABG O2 Saturation 96.8 97.5 ABG Base Excess -1.9 -3.4 FiO2 50% 50% Sodium 145.3 H Potassium 3.4 L Chloride 109 H Carbon Dioxide 21 L Anion Gap 15 BUN 60 H Creatinine 1.33 H Est GFR ( Amer) 46 L Est GFR (Non-Af Amer) 38 L Glucose 102 Calcium 8.3 L Magnesium 2.4 H 10/06/17 05:45 WBC 24.2 H RBC 2.70 L Hgb 9.1 L Hct 28.2 L MCV 105 H MCH 33.9 H MCHC 32.4 RDW 16.6 H Plt Count 237 Seg Neutrophils % Not Reportable Lymphocytes % Not Reportable Monocytes % Not Reportable Eosinophils % Not Reportable Basophils % Not Reportable Absolute Neutrophils Not Reportable Absolute Lymphocytes Not Reportable Absolute Monocytes Not Reportable Absolute Eosinophils Not Reportable Absolute Basophils Not Reportable Carbonic Acid HCO3/H2CO3 Ratio ABG pH ABG pCO2 ABG pO2 ABG HCO3 ABG O2 Saturation ABG Base Excess FiO2 Sodium Potassium Chloride Carbon Dioxide Anion Gap BUN Creatinine Est GFR ( Amer) Est GFR (Non-Af Amer) Glucose Calcium Magnesium Impressions: Chest X-Ray 10/06/17 06:00 IMPRESSION: No significant change. Assessment & Plan - Diagnosis (1) Aspiration pneumonia Qualifiers: Aspiration pneumonia type: due to regurgitated food Laterality: bilateral Lung location: lower lobe of lung Qualified Code(s): J69.0 - Pneumonitis due to inhalation of food and vomit Is this a current diagnosis for this admission?: Yes Plan: xr stable. Continue neena & unasyn. (2) Anoxic brain damage Is this a current diagnosis for this admission?: Yes Plan: no better. Consider extubation if son agrees. (3) Sepsis associated hypotension Is this a current diagnosis for this admission?: Yes (4) Chronic diastolic heart failure Is this a current diagnosis for this admission?: Yes Plan: [id number]. Decrease ivf. 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
[2017-10-06] MEDS: TOBRAMYCIN SULFATE NEB 40 MG/ML 30 ML NEB SCH ×2 (08:04→20:23)
[2017-10-06] MEDS: POTASSIUM CHLORIDE 20 MEQ/15 ML UDCUP NG SCH ×3 (11:30→17:32)
[2017-10-06] MEDS: FAMOTIDINE INJ/PF 20 MG/2 ML SDV IV SCH ×2 (11:30→21:23)
[2017-10-06] MEDS: ENOXAPARIN SODIUM INJ 30 MG/0.3 ML DISP.SYRIN SUBCUT SCH (11:30)
--- NOTE | 2017-10-06 11:31 | PDOC PROGRESS REPORT ---
Subjective Progress Note for:: 10/06/17 Subjective:: Intubated and sedated Reason For Visit: PNEUMONIA Physical Exam Vital Signs: Temp Pulse Resp BP Pulse Ox 97.6 F 79 22 H 105/53 L 100 10/06/17 05:44 10/06/17 08:04 10/06/17 08:04 10/06/17 05:23 10/06/17 08:04 Intake & Output 10/05/17 10/06/17 10/07/17 06:59 06:59 06:59 Intake Total 826 2984 Output Total 1098 880 Balance -272 2104 Weight 84.8 kg 85.9 kg General appearance: PRESENT: no acute distress, disheveled, well-developed, well -nourished. ABSENT: cooperative Head exam: PRESENT: atraumatic, normocephalic Eye exam: PRESENT: conjunctiva pale. ABSENT: EOMI, nystagmus, periorbital swelling, scleral icterus Mouth exam: PRESENT: dry mucosa, neck supple, tongue midline, other - ET tube in place Neck exam: ABSENT: carotid bruit, JVD, lymphadenopathy, thyromegaly, tracheal deviation, tracheostomy Respiratory exam: PRESENT: decreased breath sounds, prolonged expiratory phas, rales, rhonchi, symmetrical, unlabored. ABSENT: retraction, stridor Cardiovascular exam: PRESENT: RRR, +S1, +S2, tachycardia Pulses: PRESENT: normal radial pulses GI/Abdominal exam: PRESENT: diminished bowel sounds, soft Extremities exam: ABSENT: clubbing, joint swelling, pedal edema Musculoskeletal exam: ABSENT: deformity, dislocation Neurological exam: ABSENT: awake, oriented to person Skin exam: PRESENT: dry, warm Results Laboratory Results: 10/06/17 05:45 10/06/17 05:45 10/05/17 10/06/17 10/06/17 08:00 05:45 05:45 WBC RBC Hgb Hct MCV MCH MCHC RDW Plt Count Seg Neutrophils % Lymphocytes % Monocytes % Eosinophils % Basophils % Absolute Neutrophils Absolute Lymphocytes Absolute Monocytes Absolute Eosinophils Absolute Basophils Carbonic Acid 1.05 0.97 L HCO3/H2CO3 Ratio 21:1 21:1 ABG pH 7.42 7.42 ABG pCO2 35.0 32.1 L ABG pO2 87.1 95.6 ABG HCO3 22.1 20.4 ABG O2 Saturation 96.8 97.5 ABG Base Excess -1.9 -3.4 FiO2 50% 50% Sodium 145.3 H Potassium 3.4 L Chloride 109 H Carbon Dioxide 21 L Anion Gap 15 BUN 60 H Creatinine 1.33 H Est GFR ( Amer) 46 L Est GFR (Non-Af Amer) 38 L Glucose 102 Calcium 8.3 L Magnesium 2.4 H 10/06/17 05:45 WBC 24.2 H RBC 2.70 L Hgb 9.1 L Hct 28.2 L MCV 105 H MCH 33.9 H MCHC 32.4 RDW 16.6 H Plt Count 237 Seg Neutrophils % Not Reportable Lymphocytes % Not Reportable Monocytes % Not Reportable Eosinophils % Not Reportable Basophils % Not Reportable Absolute Neutrophils Not Reportable Absolute Lymphocytes Not Reportable Absolute Monocytes Not Reportable Absolute Eosinophils Not Reportable Absolute Basophils Not Reportable Carbonic Acid HCO3/H2CO3 Ratio ABG pH ABG pCO2 ABG pO2 ABG HCO3 ABG O2 Saturation ABG Base Excess FiO2 Sodium Potassium Chloride Carbon Dioxide Anion Gap BUN Creatinine Est GFR ( Amer) Est GFR (Non-Af Amer) Glucose Calcium Magnesium Impressions: Chest X-Ray 10/06/17 06:00 IMPRESSION: No significant change. Assessment & Plan - Diagnosis (1) Aspiration pneumonia Qualifiers: Aspiration pneumonia type: due to regurgitated food Laterality: bilateral Lung location: lower lobe of lung Qualified Code(s): J69.0 - Pneumonitis due to inhalation of food and vomit Is this a current diagnosis for this admission?: Yes Plan: Labs- All tests 24 hr 10/04/17 10/05/17 10/06/17 08:58 06:05 05:45 WBC 16.7 H 21.8 H 24.2 H Seg Neuts % (Manual) 70 80 H 86 H Band Neutrophils % 20 H 16 H 4 10/04/17 10:00 Gram Stain - Preliminary Sputum Sputum Culture - Preliminary Staphylococcus Aureus Gram Negative Rods Yeast, Not Idalia Albicans Normal Hanna Absent 10/04/17 08:41 Urine Culture - Final Jones Catheter Klebsiella Pneumoniae 10/04/17 08:38 Blood Culture - Preliminary Blood NO GROWTH IN 24 HOURS 10/04/17 08:30 Blood Culture - Preliminary Blood Gram Positive Cocci (2) Chronic atrial fibrillation Is this a current diagnosis for this admission?: Yes Plan: stable (3) Panlobular emphysema Is this a current diagnosis for this admission?: Yes Plan: Generic Name Dose Route Start Last Admin Trade Name Freq PRN Reason Stop Dose Admin Levalbuterol HCl 0.63 mg 10/04/17 09:43 Xopenex Neb 0.63 Mg/3 Ml Ampul NEB 11/03/17 09:42 [id number] PRN FOR WHEEZING Albuterol/Ipratropium 3 ml 10/04/17 14:00 10/04/17 13:41 Duoneb 3 Ml Ampul NEB 11/03/17 13:59 3 ml RTQ6 PACO (4) Respiratory failure requiring intubation Is this a current diagnosis for this admission?: Yes Plan: Improving FiO2 down to 50% (5) Sepsis associated hypotension Is this a current diagnosis for this admission?: Yes - Time Total Critical Time (Minutes): 40
--- NOTE | 2017-10-06 13:39 | EKG REPORT ---
SEVERITY:- ABNORMAL ECG - ATRIAL FIBRILLATION LOW VOLTAGE THROUGHOUT CONSIDER INFERIOR INFARCT BORDERLINE T ABNORMALITIES, ANTERIOR LEADS BORDERLINE PROLONGED QT INTERVAL : Confirmed by: Reji Solorzano MD 06-Oct-2017 13:38:56
[2017-10-06] MEDS: CEFTAZIDIME PENTAHYDRATE 1 GM in DEXTROSE 5%-WATER 50 ML IV SCH (14:42)
[2017-10-06] MEDS: 1/2 NORMAL SALINE 1,000 ML IV PRN ×2 (14:42→15:53)
--- NOTE | 2017-10-06 15:09 | Progress Note ---
Provider Note Provider Note: ID Consult Note- I was asked by pharmacy to review this patient's chart and medications. Patient is an elderly female who has been diagnosed with suspected aspiration pneumonia. Her chest x-ray shows a RLL infiltrate with a likely effusion. Patient is receiving IV Zosyn (pip-tazo) and ceftazidime. Sputum culture has mixed chet, including MSSA (4+) and GNR (1+). Yeast is likely a colonizer. Urine has Klebsiella, but this is likely a colonizer in this elderly patient. Blood cultures have Gram positive cocci in one bottle; this may be a contaminant (coagulase-negative Staph), but if it is Staph aureus, I suspect that it will be MSSA given that the patient has MSSA in the sputum. Prognosis for this patient is poor given her advanced age. However, Zosyn by itself should cover the MSSA and GNR in the sputum. It will also cover the Klebsiella in the urine, although I doubt that this needs to be treated. Recommend continuing Zosyn. Recommend discontinuing ceftazidime. Recommend follow up blood culture. Please contact me if there are questions. Amado Cruz MD Pager: [phone]
[2017-10-07] MEDS: IPRATROPIUM/ALBUTEROL 0.5-2.5 MG/3 ML AMPUL NEB SCH ×4 (02:00→19:47)
[2017-10-07] MEDS: AMPICILLIN SODIUM/SULBACTAM NA 3 GM in NORMAL SALINE 100 ML IV SCH (02:02)
[2017-10-07] MEDS: PROPOFOL 100 ML IV PRN ×4 (02:02→19:05)
[2017-10-07 05:29] LABS: ARTERIAL BLOOD BASE EXCESS -3.2 mmol/L; ARTERIAL BLOOD H2CO3 0.88 mmol/L (1.05-1.35); ARTERIAL BLOOD HCO3 20.1 mmol/L (20-26); ARTERIAL BLOOD O2 SATURATION 96.5 % (94-98); ARTERIAL BLOOD PCO2 29.4 mmHg (35-45); ARTERIAL BLOOD PH 7.45 (7.35-7.45); ARTERIAL BLOOD PO2 80.5 mmHg (80-100)
[2017-10-07 05:30] LABS: ARTERIAL BLOOD FIO2 40%
[2017-10-07 05:35] LABS: HEMATOCRIT 26.3 % (36.0-47.0); HEMOGLOBIN 8.6 g/dL (12.0-15.5); MEAN CORPUSCULAR HGB CONC 32.8 g/dL (32.0-36.0); MEAN CORPUSCULAR VOLUME 104 fl (80-97); PLATELET COUNT 210 10^3/uL (150-450); RED BLOOD COUNT 2.54 10^6/uL (3.72-5.28); RED CELL DISTRIBUTION WIDTH 16.9 % (11.5-14.0)
[2017-10-07 05:48] LABS: ANION GAP 12 (5-19); BLOOD UREA NITROGEN 52 mg/dL (7-20); CALCIUM 8.3 mg/dL (8.4-10.2); CARBON DIOXIDE 21 mmol/L (22-30); CHLORIDE 111 mmol/L (98-107); GLUCOSE 95 mg/dL (75-110); POTASSIUM 4.2 mmol/L (3.6-5.0); SODIUM 144.2 mmol/L (137-145)
[2017-10-07] MEDS ORDERED: PIPERACILLIN/TAZOBACTAM 3.375 GM VIAL IV PRN (05:58)
--- NOTE | 2017-10-07 06:01 | PDOC PROGRESS REPORT ---
Subjective Progress Note for:: 10/07/17 Subjective:: sedated Reason For Visit: PNEUMONIA Physical Exam Vital Signs: Temp Pulse Resp BP Pulse Ox 97.3 F 80 22 H 96/45 L 94 10/07/17 04:23 10/07/17 02:00 10/07/17 04:23 10/07/17 04:23 10/07/17 04:23 Intake & Output 10/05/17 10/06/17 10/07/17 07:59 07:59 07:59 Intake Total 826 2984 1177 Output Total 1098 880 780 Balance -272 2104 397 Weight 186 lb 15.232 oz 189 lb 6.033 oz 189 lb 6.033 oz Respiratory exam: PRESENT: clear to auscultation tre Cardiovascular exam: PRESENT: irregular rhythm, systolic murmur. ABSENT: diastolic murmur Murmur grade: 1 GI/Abdominal exam: ABSENT: mass, organolmegaly Extremities exam: ABSENT: pedal edema Results Laboratory Results: 10/07/17 05:15 Abnormal - 24 hr 10/06/17 10/06/17 10/06/17 05:45 05:45 05:45 WBC 24.2 H RBC 2.70 L Hgb 9.1 L Hct 28.2 L MCV 105 H MCH 33.9 H RDW 16.6 H Seg Neuts % (Manual) 86 H Lymphocytes % (Manual) 2 L Abs Neuts (Manual) 21.8 H Abs Monocytes (Manual) 1.7 H Carbonic Acid 0.97 L ABG pCO2 32.1 L Sodium 145.3 H Potassium 3.4 L Chloride 109 H Carbon Dioxide 21 L BUN 60 H Creatinine 1.33 H Est GFR ( Amer) 46 L Est GFR (Non-Af Amer) 38 L Calcium 8.3 L Magnesium 2.4 H 10/07/17 10/07/17 05:15 05:15 WBC RBC Hgb Hct MCV MCH RDW Seg Neuts % (Manual) Lymphocytes % (Manual) Abs Neuts (Manual) Abs Monocytes (Manual) Carbonic Acid 0.88 L ABG pCO2 29.4 L Sodium Potassium Chloride 111 H Carbon Dioxide 21 L BUN 52 H Creatinine 1.36 H Est GFR ( Amer) 45 L Est GFR (Non-Af Amer) 37 L Calcium 8.3 L Magnesium 2.4 H 10/04/17 10:00 Sputum Gram Stain - Final Assessment & Plan - Diagnosis (1) Aspiration pneumonia Qualifiers: Aspiration pneumonia type: due to regurgitated food Laterality: bilateral Lung location: lower lobe of lung Qualified Code(s): J69.0 - Pneumonitis due to inhalation of food and vomit Is this a current diagnosis for this admission?: Yes Plan: MSSA & GNR in sputum. Klebsiella in urine. Dr Cruz suggested zosyn alone. (2) Anoxic brain damage Is this a current diagnosis for this admission?: Yes Plan: Dr Jimenez planned terminal extubation for tomorrow. 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
[2017-10-07] MEDS ORDERED: PIPERACILLIN/TAZOBACTAM 3.375 GM VIAL IV ONE (06:11)
[2017-10-07] MEDS: PIPERACILLIN SODIUM/TAZOBACTAM 3.375 GM in NORMAL SALINE 100 ML IV SCH ×4 (06:17→23:12)
[2017-10-07 06:32] LABS: ABSOLUTE MONOCYTES # (MANUAL) 0.5 10^3/uL (0.1-1.4); ABSOLUTE NEUTROPHILS# (MANUAL) 24.2 10^3/uL (1.7-8.2); BASOPHILS % (MANUAL) 0 % (0-2); EOSINOPHILS % (MANUAL) 1 % (0-6); LYMPHOCYTES % (MANUAL) 4 % (13-45); MONOCYTES % (MANUAL) 2 % (3-13); SEGMENTED NEUTROPHILS % (MAN) 93 % (42-78); TOTAL CELLS COUNTED 100
[2017-10-07 06:34] LABS: ANISOCYTOSIS 1+; OVALOCYTES SLIGHT; POLYCHROMASIA SLIGHT; TEAR DROP CELLS SLIGHT
[2017-10-07 06:36] LABS: PLATELET COMMENT ADEQUATE
--- NOTE | 2017-10-07 07:52 | RADIOLOGY REPORT (SQ) ---
EXAM DESCRIPTION: CHEST SINGLE VIEW CLINICAL HISTORY: 87 years Female, pna/resp failure COMPARISON: October 06, 2017 NUMBER OF VIEWS/TECHNIQUE: 1/AP LIMITATIONS: None. FINDINGS: Moderate bibasilar opacity-effusion, moderate mixed airspace and interstitial opacity, normal cardiac silhouette, adequate appearing endotracheal tube, likely adequate enteric tube obscured at its tip, right jugular central line tip at the SVC, atherosclerosis, no pneumothorax, no acute bone defect. IMPRESSION: No significant change.
[2017-10-07] MEDS: TOBRAMYCIN SULFATE NEB 40 MG/ML 30 ML NEB SCH ×2 (08:08→19:48)
[2017-10-07] MEDS: FAMOTIDINE INJ/PF 20 MG/2 ML SDV IV SCH ×2 (09:12→21:29)
[2017-10-07] MEDS: POTASSIUM CHLORIDE 20 MEQ/15 ML UDCUP NG SCH ×3 (09:12→17:59)
[2017-10-07] MEDS: ENOXAPARIN SODIUM INJ 30 MG/0.3 ML DISP.SYRIN SUBCUT SCH (09:12)
--- NOTE | 2017-10-07 10:15 | PDOC PROGRESS REPORT ---
Subjective Progress Note for:: 10/07/17 Subjective:: Intubated and sedated Reason For Visit: PNEUMONIA Physical Exam Vital Signs: Temp Pulse Resp BP Pulse Ox 97.0 F 80 22 H 99/53 L 95 10/07/17 06:00 10/07/17 02:00 10/07/17 06:00 10/07/17 05:23 10/07/17 06:00 Intake & Output 10/06/17 10/07/17 10/08/17 06:59 06:59 06:59 Intake Total 2984 2088 Output Total 880 855 Balance 2104 1233 Weight 85.9 kg 86.1 kg General appearance: PRESENT: no acute distress, disheveled. ABSENT: cooperative Head exam: PRESENT: atraumatic, normocephalic Eye exam: PRESENT: conjunctiva pale. ABSENT: EOMI, nystagmus, periorbital swelling, scleral icterus Mouth exam: PRESENT: dry mucosa, neck supple, tongue midline, other Neck exam: ABSENT: carotid bruit, JVD, lymphadenopathy, thyromegaly, tracheal deviation, tracheostomy Respiratory exam: PRESENT: decreased breath sounds, prolonged expiratory phas, rales, rhonchi, symmetrical, unlabored. ABSENT: retraction, stridor, tachypnea Cardiovascular exam: PRESENT: RRR, +S1, +S2, tachycardia Pulses: PRESENT: normal radial pulses GI/Abdominal exam: PRESENT: diminished bowel sounds, soft Extremities exam: ABSENT: calf tenderness, clubbing, joint swelling Musculoskeletal exam: ABSENT: deformity, dislocation Neurological exam: ABSENT: awake, oriented to person Skin exam: PRESENT: dry, warm Results Laboratory Results: 10/07/17 05:15 10/07/17 05:15 10/07/17 10/07/17 10/07/17 05:15 05:15 05:15 WBC 26.0 H RBC 2.54 L Hgb 8.6 L Hct 26.3 L MCV 104 H MCH 34.0 H MCHC 32.8 RDW 16.9 H Plt Count 210 Seg Neutrophils % Not Reportable Lymphocytes % Not Reportable Monocytes % Not Reportable Eosinophils % Not Reportable Basophils % Not Reportable Absolute Neutrophils Not Reportable Absolute Lymphocytes Not Reportable Absolute Monocytes Not Reportable Absolute Eosinophils Not Reportable Absolute Basophils Not Reportable Carbonic Acid 0.88 L HCO3/H2CO3 Ratio 22:1 ABG pH 7.45 ABG pCO2 29.4 L ABG pO2 80.5 ABG HCO3 20.1 ABG O2 Saturation 96.5 ABG Base Excess -3.2 FiO2 40% Sodium 144.2 Potassium 4.2 Chloride 111 H Carbon Dioxide 21 L Anion Gap 12 BUN 52 H Creatinine 1.36 H Est GFR ( Amer) 45 L Est GFR (Non-Af Amer) 37 L Glucose 95 Calcium 8.3 L Magnesium 2.4 H 10/04/17 10:00 Sputum Gram Stain - Final 10/04/17 10:00 Sputum Sputum Culture - Final Staphylococcus Aureus Pseudomonas Aeruginosa Yeast, Not Idalia Albicans Normal Hanna Absent Impressions: Chest X-Ray 10/07/17 06:00 IMPRESSION: No significant change. Assessment & Plan - Diagnosis (1) Aspiration pneumonia Qualifiers: Aspiration pneumonia type: due to regurgitated food Laterality: bilateral Lung location: lower lobe of lung Qualified Code(s): J69.0 - Pneumonitis due to inhalation of food and vomit Is this a current diagnosis for this admission?: Yes Plan: Labs- All tests 24 hr 10/04/17 10/05/17 10/06/17 08:58 06:05 05:45 WBC 16.7 H 21.8 H 24.2 H Seg Neuts % (Manual) 70 80 H 86 H Band Neutrophils % 20 H 16 H 4 10/04/17 10:00 Gram Stain - Preliminary Sputum Sputum Culture - Preliminary Staphylococcus Aureus Gram Negative Rods Yeast, Not Idalia Albicans Normal Hanna Absent 10/04/17 08:41 Urine Culture - Final Jones Catheter Klebsiella Pneumoniae 10/04/17 08:38 Blood Culture - Preliminary Blood NO GROWTH IN 24 HOURS 10/04/17 08:30 Blood Culture - Preliminary Blood Gram Positive Cocci (2) Chronic atrial fibrillation Is this a current diagnosis for this admission?: Yes Plan: stable (3) Panlobular emphysema Is this a current diagnosis for this admission?: Yes Plan: Generic Name Dose Route Start Last Admin Trade Name Freq PRN Reason Stop Dose Admin Levalbuterol HCl 0.63 mg 10/04/17 09:43 Xopenex Neb 0.63 Mg/3 Ml Ampul NEB 11/03/17 09:42 [id number] PRN FOR WHEEZING Albuterol/Ipratropium 3 ml 10/04/17 14:00 10/04/17 13:41 Duoneb 3 Ml Ampul NEB 11/03/17 13:59 3 ml RTQ6 [facility] (4) Respiratory failure requiring intubation Is this a current diagnosis for this admission?: Yes (5) Sepsis associated hypotension Is this a current diagnosis for this admission?: Yes Plan: Vasopressor agent Labs- All tests 24 hr 10/04/17 10/05/17 10/06/17 08:58 06:05 05:45 WBC 16.7 H 21.8 H 24.2 H Hgb 11.3 L 9.7 L 9.1 L ABG pH ABG pCO2 ABG pO2 ABG O2 Saturation FiO2 Carbon Dioxide BUN Creatinine 10/07/17 10/07/17 10/07/17 05:15 05:15 05:15 WBC 26.0 H Hgb 8.6 L ABG pH 7.45 ABG pCO2 29.4 L ABG pO2 80.5 ABG O2 Saturation 96.5 FiO2 40% Carbon Dioxide 21 L BUN 52 H Creatinine 1.36 H - Time Total Critical Time (Minutes): 45
[2017-10-07] MEDS: 1/2 NORMAL SALINE 1,000 ML IV PRN (18:03)
[2017-10-08] MEDS: IPRATROPIUM/ALBUTEROL 0.5-2.5 MG/3 ML AMPUL NEB SCH ×2 (02:03→08:03)
[2017-10-08] MEDS: PIPERACILLIN SODIUM/TAZOBACTAM 3.375 GM in NORMAL SALINE 100 ML IV SCH (05:20)
[2017-10-08 05:50] LABS: HEMATOCRIT 29.7 % (36.0-47.0); HEMOGLOBIN 9.8 g/dL (12.0-15.5); MEAN CORPUSCULAR HGB CONC 32.9 g/dL (32.0-36.0); MEAN CORPUSCULAR VOLUME 103 fl (80-97); PLATELET COUNT 230 10^3/uL (150-450); RED BLOOD COUNT 2.88 10^6/uL (3.72-5.28); RED CELL DISTRIBUTION WIDTH 16.9 % (11.5-14.0); WHITE BLOOD COUNT 26.9 10^3/uL (4.0-10.5)
[2017-10-08 06:00] LABS: ARTERIAL BLOOD BASE EXCESS -5.7 mmol/L; ARTERIAL BLOOD H2CO3 0.92 mmol/L (1.05-1.35); ARTERIAL BLOOD HCO3 18.3 mmol/L (20-26); ARTERIAL BLOOD O2 SATURATION 95.6 % (94-98); ARTERIAL BLOOD PCO2 30.6 mmHg (35-45); ARTERIAL BLOOD PO2 77.4 mmHg (80-100); ARTERIAL BLOOD TOTAL CO2 19.3 mmol/L (21-25)
[2017-10-08 06:08] LABS: ARTERIAL BLOOD FIO2 40%
--- NOTE | 2017-10-08 06:16 | RADIOLOGY REPORT (SQ) ---
EXAM DESCRIPTION: CHEST SINGLE VIEW CLINICAL HISTORY: 87 years Female, pna/resp failure COMPARISON: October 07, 2017 NUMBER OF VIEWS/TECHNIQUE: 1/AP LIMITATIONS: None. FINDINGS: Mixed moderate airspace and interstitial markings with lower predominance, moderate lung volume, normal cardiac silhouette, atherosclerosis, adequate appearing endotracheal tube, likely adequate enteric tube obscured distally, right jugular central line tip at the cavoatrial junction. No pneumothorax. No acute bone defect. IMPRESSION: No significant change.
[2017-10-08 06:17] LABS: TEAR DROP CELLS SLIGHT
[2017-10-08 06:18] LABS: PLATELET COMMENT ADEQUATE
[2017-10-08 06:29] LABS: ABSOLUTE LYMPHOCYTES# (MANUAL) 1.6 10^3/uL (0.5-4.7); ABSOLUTE MONOCYTES # (MANUAL) 0.8 10^3/uL (0.1-1.4); ABSOLUTE NEUTROPHILS# (MANUAL) 23.4 10^3/uL (1.7-8.2); ANISOCYTOSIS 1+; BAND NEUTROPHILS % (MANUAL) 1 % (3-5); BASOPHILS % (MANUAL) 0 % (0-2); EOSINOPHILS % (MANUAL) 4 % (0-6); LYMPHOCYTES % (MANUAL) 6 % (13-45); MONOCYTES % (MANUAL) 3 % (3-13); POIKILOCYTOSIS 1+; SEGMENTED NEUTROPHILS % (MAN) 86 % (42-78); TOTAL CELLS COUNTED 100
[2017-10-08 06:39] LABS: ANION GAP 11 (5-19); BLOOD UREA NITROGEN 48 mg/dL (7-20); CALCIUM 8.6 mg/dL (8.4-10.2); CARBON DIOXIDE 20 mmol/L (22-30); CHLORIDE 113 mmol/L (98-107); GLUCOSE 105 mg/dL (75-110); SODIUM 144.3 mmol/L (137-145)
--- NOTE | 2017-10-08 07:27 | PDOC PROGRESS REPORT ---
Subjective Progress Note for:: 10/08/17 Subjective:: no words or eye opening during 6h of sedation vacation Reason For Visit: PNEUMONIA Physical Exam Vital Signs: Temp Pulse Resp BP Pulse Ox 98.6 F 72 27 H 124/52 L 95 10/08/17 06:00 10/08/17 06:00 10/08/17 06:00 10/08/17 06:00 10/08/17 06:00 Intake & Output 10/06/17 10/07/17 10/08/17 07:59 07:59 07:59 Intake Total 2984 2088 2091 Output Total 880 855 605 Balance 2104 1233 1486 Weight 189 lb 6.033 oz 189 lb 13.088 oz 194 lb 0.108 oz General appearance: PRESENT: no acute distress Respiratory exam: PRESENT: clear to auscultation tre Cardiovascular exam: ABSENT: diastolic murmur, irregular rhythm, systolic murmur Murmur grade: 1 GI/Abdominal exam: ABSENT: mass, organolmegaly, tenderness Extremities exam: ABSENT: pedal edema Results Laboratory Results: 10/08/17 05:40 10/08/17 05:40 10/08/17 10/08/17 10/08/17 05:40 05:40 05:40 WBC 26.9 H RBC 2.88 L Hgb 9.8 L Hct 29.7 L MCV 103 H MCH 34.0 H MCHC 32.9 RDW 16.9 H Plt Count 230 Seg Neutrophils % Not Reportable Lymphocytes % Not Reportable Monocytes % Not Reportable Eosinophils % Not Reportable Basophils % Not Reportable Absolute Neutrophils Not Reportable Absolute Lymphocytes Not Reportable Absolute Monocytes Not Reportable Absolute Eosinophils Not Reportable Absolute Basophils Not Reportable Carbonic Acid 0.92 L HCO3/H2CO3 Ratio 19:1 ABG pH 7.40 ABG pCO2 30.6 L ABG pO2 77.4 L ABG HCO3 18.3 L ABG O2 Saturation 95.6 ABG Base Excess -5.7 FiO2 40% Sodium 144.3 Potassium 5.0 Chloride 113 H Carbon Dioxide 20 L Anion Gap 11 BUN 48 H Creatinine 1.36 H Est GFR ( Amer) 45 L Est GFR (Non-Af Amer) 37 L Glucose 105 Calcium 8.6 Magnesium 2.6 H 10/04/17 10:00 Sputum Gram Stain - Final 10/04/17 10:00 Sputum Sputum Culture - Final Staphylococcus Aureus Pseudomonas Aeruginosa Yeast, Not Idalia Albicans Normal Hanna Absent Impressions: Chest X-Ray 10/08/17 06:00 IMPRESSION: No significant change. Assessment & Plan - Diagnosis (1) Aspiration pneumonia Qualifiers: Aspiration pneumonia type: due to regurgitated food Laterality: bilateral Lung location: lower lobe of lung Qualified Code(s): J69.0 - Pneumonitis due to inhalation of food and vomit Is this a current diagnosis for this admission?: Yes Plan: xr same. [id number]. (2) Anoxic brain damage Is this a current diagnosis for this admission?: Yes Plan: Terminal extubation is planned. Answered daughter's questions. 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 Is this a current diagnosis for this admission?: Yes (9) Atrophy of thyroid Is this a current diagnosis for this admission?: Yes (10) Acute kidney injury Is this a current diagnosis for this admission?: Yes - Inpatient Certification Medical Necessity: Failure to Improve With Outpatient Therapy, Significant Comorbidiites Make Outpatient Treatment Too Risky, Need Close Monitoring Due to Risk of Patient Decompensation, Need For IV Fluids, Need For Continuous Telemetry Monitoring, Need for IV Antibiotics, Risk of Complication if Not Cared For in Hospital, Risk of Diagnosis Which Will Require Inpatient Eval/Care/ Monitoring
[2017-10-08] MEDS: TOBRAMYCIN SULFATE NEB 40 MG/ML 30 ML NEB SCH (08:03)
[2017-10-08] MEDS ORDERED: LORAZEPAM INJ 2 MG/1 ML VIAL ONE (12:30)
[2017-10-08] MEDS ORDERED: MORPHINE SULFATE 10 MG/ML INJ ONE ×3 (12:37→12:59)
[2017-10-08 13:20] VITALS: BP 103/69
[2017-10-08] MEDS: LORAZEPAM INJ 2 MG/1 ML VIAL IV PRN ×3 (13:40→17:55)
[2017-10-08] MEDS: MORPHINE SULFATE 10 MG/ML INJ IV PRN ×3 (14:50→19:03)
--- NOTE | 2017-10-08 15:40 | PDOC PROGRESS REPORT ---
Subjective Progress Note for:: 10/08/17 Subjective:: comfort care Reason For Visit: PNEUMONIA Physical Exam Vital Signs: Temp Pulse Resp BP Pulse Ox 98.8 F 76 27 H 120/46 L 96 10/08/17 10:00 10/08/17 11:49 10/08/17 10:00 10/08/17 09:54 10/08/17 12:05 Intake & Output 10/07/17 10/08/17 10/09/17 06:59 06:59 06:59 Intake Total 2088 2091 Output Total 855 605 185 Balance 1233 1486 -185 Weight 86.1 kg 88 kg General appearance: PRESENT: no acute distress, obese. ABSENT: cooperative, disheveled Head exam: PRESENT: atraumatic, normocephalic Eye exam: PRESENT: conjunctiva pale. ABSENT: nystagmus, periorbital swelling, scleral icterus Mouth exam: PRESENT: dry mucosa, neck supple, tongue midline, other - ET tube Neck exam: ABSENT: carotid bruit, JVD, lymphadenopathy, thyromegaly, tracheal deviation, tracheostomy Respiratory exam: PRESENT: decreased breath sounds, prolonged expiratory phas, rhonchi, symmetrical, wheezes. ABSENT: rales, retraction, stridor, tachypnea Cardiovascular exam: PRESENT: irregular rhythm, tachycardia Pulses: PRESENT: normal radial pulses GI/Abdominal exam: PRESENT: diminished bowel sounds, soft Gentrourinary exam: PRESENT: indwelling catheter Extremities exam: ABSENT: clubbing, joint swelling Musculoskeletal exam: ABSENT: deformity, dislocation Neurological exam: ABSENT: oriented to person, oriented to place, oriented to time, oriented to situation Skin exam: PRESENT: dry, warm Results Laboratory Results: 10/08/17 05:40 10/08/17 05:40 10/08/17 10/08/17 10/08/17 05:40 05:40 05:40 WBC 26.9 H RBC 2.88 L Hgb 9.8 L Hct 29.7 L MCV 103 H MCH 34.0 H MCHC 32.9 RDW 16.9 H Plt Count 230 Seg Neutrophils % Not Reportable Lymphocytes % Not Reportable Monocytes % Not Reportable Eosinophils % Not Reportable Basophils % Not Reportable Absolute Neutrophils Not Reportable Absolute Lymphocytes Not Reportable Absolute Monocytes Not Reportable Absolute Eosinophils Not Reportable Absolute Basophils Not Reportable Carbonic Acid 0.92 L HCO3/H2CO3 Ratio 19:1 ABG pH 7.40 ABG pCO2 30.6 L ABG pO2 77.4 L ABG HCO3 18.3 L ABG O2 Saturation 95.6 ABG Base Excess -5.7 FiO2 40% Sodium 144.3 Potassium 5.0 Chloride 113 H Carbon Dioxide 20 L Anion Gap 11 BUN 48 H Creatinine 1.36 H Est GFR ( Amer) 45 L Est GFR (Non-Af Amer) 37 L Glucose 105 Calcium 8.6 Magnesium 2.6 H Impressions: Chest X-Ray 10/08/17 06:00 IMPRESSION: No significant change. Assessment & Plan - Diagnosis (1) Aspiration pneumonia Qualifiers: Aspiration pneumonia type: due to regurgitated food Laterality: bilateral Lung location: lower lobe of lung Qualified Code(s): J69.0 - Pneumonitis due to inhalation of food and vomit Is this a current diagnosis for this admission?: Yes Plan: Labs- All tests 24 hr 10/04/17 10/05/17 10/06/17 08:58 06:05 05:45 WBC 16.7 H 21.8 H 24.2 H Seg Neuts % (Manual) 70 80 H 86 H Band Neutrophils % 20 H 16 H 4 10/04/17 10:00 Gram Stain - Preliminary Sputum Sputum Culture - Preliminary Staphylococcus Aureus Gram Negative Rods Yeast, Not Idalia Albicans Normal Hanna Absent 10/04/17 08:41 Urine Culture - Final Jones Catheter Klebsiella Pneumoniae 10/04/17 08:38 Blood Culture - Preliminary Blood NO GROWTH IN 24 HOURS 10/04/17 08:30 Blood Culture - Preliminary Blood Gram Positive Cocci (2) Chronic atrial fibrillation Is this a current diagnosis for this admission?: Yes Plan: stable (3) Panlobular emphysema Is this a current diagnosis for this admission?: Yes Plan: Generic Name Dose Route Start Last Admin Trade Name Freq PRN Reason Stop Dose Admin Levalbuterol HCl 0.63 mg 10/04/17 09:43 Xopenex Neb 0.63 Mg/3 Ml Ampul NEB 11/03/17 09:42 [id number] PRN FOR WHEEZING Albuterol/Ipratropium 3 ml 10/04/17 14:00 10/04/17 13:41 Duoneb 3 Ml Ampul NEB 11/03/17 13:59 3 ml RTQ6 PACO (4) Respiratory failure requiring intubation Is this a current diagnosis for this admission?: Yes Plan: per family request patient to become comfort care as she has been a SDNR in past (5) Sepsis associated hypotension Is this a current diagnosis for this admission?: Yes Plan: Vasopressor agent Labs- All tests 24 hr 10/04/17 10/05/17 10/06/17 08:58 06:05 05:45 WBC 16.7 H 21.8 H 24.2 H Hgb 11.3 L 9.7 L 9.1 L ABG pH ABG pCO2 ABG pO2 ABG O2 Saturation FiO2 Carbon Dioxide BUN Creatinine 10/07/17 10/07/17 10/07/17 05:15 05:15 05:15 WBC 26.0 H Hgb 8.6 L ABG pH 7.45 ABG pCO2 29.4 L ABG pO2 80.5 ABG O2 Saturation 96.5 FiO2 40% Carbon Dioxide 21 L BUN 52 H Creatinine 1.36 H - Time Total Critical Time (Minutes): 50
--- NOTE | 2017-10-09 05:05 | Death Summary ---
Summary Date : 10/08/17 Time of :: 20:08 Autopsy: No Resuscitation Status: Comfort Measures Only - Final Diagnosis (1) Aspiration pneumonia Is this a current diagnosis for this admission?: Yes (2) Anoxic brain damage Is this a current diagnosis for this admission?: Yes 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 The family requested extubation. She at 20:08 about 8h later.
== END 2017-10-08 20:08 | DRG 870 ==
LOC: ER 08:19 → EH 09:52 → ICU 12:38
PROVIDERS: ADMIT Family Medicine; ATTEND Family Medicine
PROC: 5A1955Z Respiratory Ventilation, Greater than 96 Consecutive Hours (ICD-10-PCS; principal; 2017-10-04)
PROC: 0HQGXZZ Repair Left Hand Skin, External Approach (ICD-10-PCS; 2017-10-04)
PROC: 0BH17EZ Insertion of Endotracheal Airway into Trachea, Via Natural or Artificial Opening (ICD-10-PCS; 2017-10-04)
PROC: 02HV33Z Insertion of Infusion Device into Superior Vena Cava, Percutaneous Approach (ICD-10-PCS; 2017-10-04)
DX: A41.9 Sepsis, unspecified organism (principal); J69.0 Pneumonitis due to inhalation of food and vomit; J96.00 Acute respiratory failure, unspecified whether with hypoxia or hypercapnia; G93.41 Metabolic encephalopathy; R65.21 Severe sepsis with septic shock; N17.9 Acute kidney failure, unspecified; I50.32 Chronic diastolic (congestive) heart failure; I13.0 Hypertensive heart and chronic kidney disease with heart failure and stage 1 through stage 4 chronic kidney disease, or unspecified chronic kidney disease; G93.1 Anoxic brain damage, not elsewhere classified; N39.0 Urinary tract infection, site not specified; J43.1 Panlobular emphysema; I48.2 Chronic atrial fibrillation; Z66 Do not resuscitate; Z96.653 Presence of artificial knee joint, bilateral; Z86.73 Personal history of transient ischemic attack (TIA), and cerebral infarction without residual deficits; E03.9 Hypothyroidism, unspecified; M10.9 Gout, unspecified; M19.90 Unspecified osteoarthritis, unspecified site; F32.9 Major depressive disorder, single episode, unspecified; N18.9 Chronic kidney disease, unspecified; B95.61 Methicillin susceptible Staphylococcus aureus infection as the cause of diseases classified elsewhere; E03.4 Atrophy of thyroid (acquired); Z78.1 Physical restraint status; N31.2 Flaccid neuropathic bladder, not elsewhere classified; S61.215A Laceration without foreign body of left ring finger without damage to nail, initial encounter; X58.XXXA Exposure to other specified factors, initial encounter; Y92.230 Patient room in hospital as the place of occurrence of the external cause; Z79.82 Long term (current) use of aspirin; Z87.891 Personal history of nicotine dependence
CPT/HCPCS: 36415; 36600; 71045; 80048; 80053; 81001; 82803; 82962; 83605; 83735; 84100; 85025; 85610; 87040; 87070; 87077; 87086; 87088; 87186; 87205; 93005; 93010; 94002; 94003; 94640; 96365; 99285; J0295; J0696; J0713; J1650; J2060; J2270; J2543; J2704; J3490; J7030; J7614; J7620; J7685; S0028